=== PATIENT | female | born 1945 | race Caucasian/White ===

== ENCOUNTER 2018-02-10 15:11 | Inpatient (IN) ==
--- NOTE | 2018-02-10 15:29 | Emergency Department Note ---
Disposition Clinical Impression: Acute exacerbation of chronic obstructive airways disease, SOB (shortness of breath), Bronchitis Disposition: Admitted As Inpatient Condition: Fair Referrals: NONE,PCP [Primary Care Provider] - Forms: ED Satisfaction Letter Time of Disposition: 17:10 General Adult HPI - General Chief complaint: ED Shortness of Breath/Dyspnea Stated complaint: "asthma attack" Time Seen by Provider: 02/10/18 15:14 Source: EMS Mode of arrival: EMS Limitations: no limitations Nursing Notes Reviewed: Yes Vital Signs Reviewed: Yes - History of Present Illness HPI Narrative: Ms. Cota is a 72 year old female brought in by EMS. EMS states she was found inside her vehicle on the side of the road with initial O2 saturation of 61. Patient was titrated to 6L (normally on 2-3L), given solumedrol and albuterol en -route, was also given ativan while hypoxic for agitation. ECG enroute showed sinus tachycardia. She arrived alert and oriented on arrival and non-agitated. She reports this shortness of breath started about 2 weeks ago when she was having more difficulty breathing with productive cough. She was first prescribed a z-pack a week ago, then a course of levaquin starting on 02/05. She endorses shortness of breath, weakness, denies chest pain, leg/calf pain. Quit smoking 4 years ago. Pain Scale: 6 - Related Data Home Medications Medication Instructions Recorded Confirmed Albuterol Sulfate [Proair Hfa] 2 puff IH QID 04/15/16 06/20/17 Albuterol Sulfate [VoSpire ER] 8 mg PO BID 04/15/16 06/20/17 Aspirin 325 mg PO DAILY 04/15/16 06/20/17 Ezetimibe [Zetia] 10 mg PO DAILY 04/15/16 06/20/17 Fluticasone/Salmeterol [Advair 1 each IH DAILY 04/15/16 06/20/17 250-50 Diskus] Metoprolol [Lopressor] 25 mg PO BID 04/15/16 06/20/17 Previous Rx's Medication Instructions Recorded Cyanocobalamin (B-12) [Vitamin B12] 1,000 mcg PO DAILY #90 tablet 08/30/16 Allergies Allergy/AdvReac Type Severity Reaction Status Date / Time Iodinated Contrast- Oral and Allergy Unknown Fainting Verified 02/10/18 15:26 IV Dye [Iodinated Contrast Media - IV Dye] Penicillins Allergy Unknown unknown Verified 02/10/18 15:26 Sulfa (Sulfonamide Allergy Unknown Hives Verified 02/10/18 15:26 Antibiotics) codeine Allergy See Verified 02/10/18 15:26 Comments Constitutional: Denies: fever Cardiovascular: Reports: palpitations. Denies: chest pain Respiratory: Reports: dyspnea, wheezes Past Medical History - Past Medical History Medical history: Reports: asthma, COPD, hyperlipidemia, hypertension Psychiatric history: Reports: depression - Social History Smoking Status: Former smoker Smokeless Tobacco Status: No Alcohol use: Reports: none Drug use: Reports: none Physical Exam - General Limitations: no limitations General appearance: alert, in no apparent distress - Head Head exam: atraumatic, normocephalic - Eye Eye exam: Present: EOMI - Chest Chest inspection: Present: normal inspection, symmetric chest wall rise - Respiratory Respiratory exam: Present: other (bilateral diminished breath sounds). Absent: respiratory distress, accessory muscle use - Cardiovascular Cardiovascular exam: Present: regular rate - Abdominal Exam Abdominal exam: Present: soft, Non-Tender. Absent: guarding, rebound - Back Exam Back exam: Present: other (increased kyphosis) - Neurological Exam Neurological exam: Present: alert, oriented X3 - Psychiatric Psychiatric exam: Present: normal affect. Absent: agitated - Skin Skin exam: Present: warm. Absent: cyanosis, diaphoresis Course Course Narrative: 72f bib EMS, on arrival she is on 6L NS alert and oriented, answering questions appropriately, she is saturating in the low to mid 90s. EMS course per HPI. She is non-diaphoretic, no retractions, lung sounds reveal bilateral diminished breath sounds without crackles. She reports no chest pain, she is tachycardic, no tenderness on calf palpation. No abdominal tenderness. We have titrated her to 6L, she has 125mg solumedrol onboard. We are ordering an ECG and troponin in the setting of severe hypoxia at scene (61). Re-eval:Patient continues to saturate well, VSS; will start her on Levoquin monotherapy and continue prn breathing treatments for symptoms. Case was discussed with hospitalist admitter who agrees to admit for evaluation of copd exacerbation. Patient understands plan and agrees. Vital Signs Temperature 98.2 F 02/10/18 15:15 Pulse Rate 111 02/10/18 15:15 Respiratory Rate 24 02/10/18 15:15 Blood Pressure 100/61 02/10/18 15:15 O2 Sat by Pulse Oximetry 91 02/10/18 15:15 Temperature 98.2 F 02/10/18 15:15 Pulse Rate 107 02/10/18 15:27 Respiratory Rate 22 02/10/18 15:27 Blood Pressure 110/72 02/10/18 15:27 O2 Sat by Pulse Oximetry 94 02/10/18 15:27 Oxygen Delivery Oxygen Delivery Nasal Cannula Medical Decision Making - Medical Records Medical records reviewed: Yes I reviewed the patient's medical records. - Lab Data Lab results reviewed: Yes I reviewed the patient's lab results. Result diagrams: 02/10/18 15:42 02/10/18 15:42 Lab Results 02/10/18 02/10/18 Range/Units 15:42 15:42 WBC 4.4 (4.3-11.1) K/mcL RBC 3.55 L (3.82-4.97) M/mcL Hgb 11.6 (11.5-15.4) g/dL Hct 35.1 L (35.3-44.9) % MCV 98.9 (83.0-100.0) fL MCH 32.7 (28.0-33.3) pg MCHC 33.0 (31.6-35.5) g/dL RDW 13.3 (11.5-14.5) % Plt Count 107 L (140-400) K/mcL MPV 10.1 (9.4-12.4) fL Immature Gran % 0.7 (0-4) % Seg Neutrophils % 84.0 % Lymphocytes % 11.7 % Monocytes % 3.4 % Eosinophils % 0.2 % Basophils % 0.0 % Neutrophils # 3.7 (1.6-8.9) K/mcL Lymphocytes # 0.5 L (0.6-4.6) K/mcL Monocytes # 0.2 (0.0-1.3) K/mcL Eosinophils # 0.0 (0.0-0.6) K/mcL Basophils # 0.0 (0.0-0.2) K/mcL Sodium 135 L (136-145) mEq/L Potassium 4.4 (3.5-5.1) mEq/L Chloride 101 (98-107) mEq/L Carbon Dioxide 30 H (23-29) mEq/L BUN 17 (8-23) mg/dL Creatinine 0.97 (0.60-1.20) mg/dL Est GFR ( Amer) > 60 (> 60) Est GFR (Non-Af Amer) 57 L (> 60) BUN/Creatinine Ratio 18 (6-26) Glucose 140 H (70-105) mg/dL Calculated Osmolality 284 (280-300) Calcium 8.6 (8.6-10.3) mg/dL Troponin I < 0.03 (< 0.04) ng/mL - Radiology Data Radiology results reviewed: Yes I reviewed the patient's radiology results. Chest X-Ray 02/10/18 15:27 IMPRESSION: No acute cardiopulmonary disease. D/ / Richie Euceda MD / Richie Euceda MD Interpreting Provider: Richie Euceda MD Attestation Statement - Attestation Attestation: I, Vinod Llamas DO, examined this patient [id number] and my medical decision-making was reviewed with Oscar Mcguire PGY-1 Resident Physician. I agree with the documented findings, disposition and treatment plan as described except to the extent set forth below. Please see my progress notes for details.
[2018-02-10 15:56] LABS: Eosinophils % 0.2 %; Hematocrit 35.1 % (35.3-44.9); Hemoglobin 11.6 g/dL (11.5-15.4); Immature Granulocytes % 0.7 % (0-4); Lymphocytes # 0.5 K/mcL (0.6-4.6); Lymphocytes % 11.7 %; Mean Corpuscular Hemoglobin 32.7 pg (28.0-33.3); Mean Corpuscular Volume 98.9 fL (83.0-100.0); Mean Platelet Volume 10.1 fL (9.4-12.4); Monocytes # 0.2 K/mcL (0.0-1.3); Monocytes % 3.4 %; Neutrophils # 3.7 K/mcL (1.6-8.9); Platelet Count 107 K/mcL (140-400); Red Blood Count 3.55 M/mcL (3.82-4.97); Red Cell Distribution Width 13.3 % (11.5-14.5)
[2018-02-10 16:22] LABS: BUN/Creatinine Ratio 18 (6-26); Blood Urea Nitrogen 17 mg/dL (8-23); Calcium 8.6 mg/dL (8.6-10.3); Carbon Dioxide 30 mEq/L (23-29); Chloride 101 mEq/L (98-107); Glucose 140 mg/dL (70-105); Osmolality,Calculated 284 (280-300); Potassium 4.4 mEq/L (3.5-5.1); Sodium 135 mEq/L (136-145); Troponin I < 0.03 ng/mL (< 0.04); eGFR For African Americans > 60 (> 60); eGFR For Non-African Americans 57 (> 60)
[2018-02-10] MEDS ORDERED: levoFLOXacin 500 MG TABLET PO ONE (16:39)
--- NOTE | 2018-02-10 16:41 | Emergency Department Note ---
Disposition Clinical Impression: Acute exacerbation of chronic obstructive airways disease, SOB (shortness of breath), Bronchitis Disposition: Admitted As Inpatient Condition: Fair Referrals: NONE,PCP [Primary Care Provider] - Forms: ED Satisfaction Letter Time of Disposition: 16:54 General Adult HPI - General Chief complaint: ED Shortness of Breath/Dyspnea Stated complaint: "asthma attack" Time Seen by Provider: 02/10/18 15:14 Source: EMS Mode of arrival: EMS Limitations: no limitations - History of Present Illness Pain Scale: 6 - Related Data Home Medications Medication Instructions Recorded Confirmed Albuterol Sulfate [Proair Hfa] 2 puff IH QID 04/15/16 06/20/17 Albuterol Sulfate [VoSpire ER] 8 mg PO BID 04/15/16 06/20/17 Aspirin 325 mg PO DAILY 04/15/16 06/20/17 Ezetimibe [Zetia] 10 mg PO DAILY 04/15/16 06/20/17 Fluticasone/Salmeterol [Advair 1 each IH DAILY 04/15/16 06/20/17 250-50 Diskus] Metoprolol [Lopressor] 25 mg PO BID 04/15/16 06/20/17 Previous Rx's Medication Instructions Recorded Cyanocobalamin (B-12) [Vitamin B12] 1,000 mcg PO DAILY #90 tablet 08/30/16 Allergies Allergy/AdvReac Type Severity Reaction Status Date / Time Iodinated Contrast- Oral and Allergy Unknown Fainting Verified 02/10/18 15:26 IV Dye [Iodinated Contrast Media - IV Dye] Penicillins Allergy Unknown unknown Verified 02/10/18 15:26 Sulfa (Sulfonamide Allergy Unknown Hives Verified 02/10/18 15:26 Antibiotics) codeine Allergy See Verified 02/10/18 15:26 Comments Constitutional: Denies: fever Cardiovascular: Reports: palpitations. Denies: chest pain Respiratory: Reports: dyspnea, wheezes Past Medical History - Past Medical History Medical history: Reports: asthma, COPD, hyperlipidemia, hypertension Psychiatric history: Reports: depression - Social History Smoking Status: Former smoker Smokeless Tobacco Status: No Alcohol use: Reports: none Drug use: Reports: none Physical Exam - General Limitations: no limitations General appearance: alert, in no apparent distress Course Vital Signs Temperature 98.2 F 02/10/18 15:15 Pulse Rate 111 04/03/18 15:15 Respiratory Rate 24 02/10/18 15:15 Blood Pressure 100/61 02/10/18 15:15 O2 Sat by Pulse Oximetry 91 02/10/18 15:15 Temperature 98.2 F 02/10/18 15:15 Pulse Rate 107 02/10/18 15:27 Respiratory Rate 22 02/10/18 15:27 Blood Pressure 110/72 02/10/18 15:27 O2 Sat by Pulse Oximetry 94 02/10/18 15:27 Oxygen Delivery Oxygen Delivery Nasal Cannula Medical Decision Making - Lab Data Result diagrams: 02/10/18 15:42 02/10/18 15:42 Lab Results 02/10/18 02/10/18 Range/Units 15:42 15:42 WBC 4.4 (4.3-11.1) K/mcL RBC 3.55 L (3.82-4.97) M/mcL Hgb 11.6 (11.5-15.4) g/dL Hct 35.1 L (35.3-44.9) % MCV 98.9 (83.0-100.0) fL MCH 32.7 (28.0-33.3) pg MCHC 33.0 (31.6-35.5) g/dL RDW 13.3 (11.5-14.5) % Plt Count 107 L (140-400) K/mcL MPV 10.1 (9.4-12.4) fL Immature Gran % 0.7 (0-4) % Seg Neutrophils % 84.0 % Lymphocytes % 11.7 % Monocytes % 3.4 % Eosinophils % 0.2 % Basophils % 0.0 % Neutrophils # 3.7 (1.6-8.9) K/mcL Lymphocytes # 0.5 L (0.6-4.6) K/mcL Monocytes # 0.2 (0.0-1.3) K/mcL Eosinophils # 0.0 (0.0-0.6) K/mcL Basophils # 0.0 (0.0-0.2) K/mcL Sodium 135 L (136-145) mEq/L Potassium 4.4 (3.5-5.1) mEq/L Chloride 101 (98-107) mEq/L Carbon Dioxide 30 H (23-29) mEq/L BUN 17 (8-23) mg/dL Creatinine 0.97 (0.60-1.20) mg/dL Est GFR ( Amer) > 60 (> 60) Est GFR (Non-Af Amer) 57 L (> 60) BUN/Creatinine Ratio 18 (6-26) Glucose 140 H (70-105) mg/dL Calculated Osmolality 284 (280-300) Calcium 8.6 (8.6-10.3) mg/dL Troponin I < 0.03 (< 0.04) ng/mL Attestation Statement - Attestation Attestation: I, Vinod Llamas DO, examined this patient [id number] and my medical decision-making was reviewed with Oscar Mcguire PGY-1), Resident Physician. I agree with the documented findings, disposition and treatment plan as described except to the extent set forth below. Please see my progress notes for details. 72-year-old female presents to the emergency room for evaluation of an asthma time. Patient has long-standing asthma COPD secondary to a previous smoking history. She denies any chest pain fevers chills nausea vomiting or diarrhea. Denies any headache or vision change. Patient has had productive cough and sputum home with last several weeks. Patient denies any recent changes in her medication. She has been on several antibiotic saline relief. She does use 2 L of oxygen typically homicidal required 4 L 24 hours a day over the last several days to weeks. Patient has been using her nebulizer. Patient is otherwise comfortable with this point. Disposition pending the full workup. Patient lungs are diminished bilaterally increased work of breathing and wheezing. Heart is regular but slightly tachycardic. Abdomen is soft. Patient has no signs of pitting edema or swelling. Disposition will most available admission the hospital. Patient was given steroids and transported by EMS. Breathing treatments were also given. Patient is otherwise clinically stable. See detailed documentation of the physical exam, medical intervention, medical decision-making and disposition in the resident physician's note. No critical care provider this patient's treatment course at this time. 1650 Patient is feeling better at this point. Patient has what appears to be asymptomatic COPD exacerbation with no acute signs of infectious etiology. She will be prophylactically started on Levaquin covering for bronchitis. Antibiotics steroids and breathing treatments have article given. Patient will be admitted for further workup and management and disposition.
[2018-02-10] MEDS ORDERED: Acetaminophen 325 MG TABLET PO PRN (20:51)
[2018-02-10] MEDS ORDERED: Naloxone 0.4 MG/ML INJ IVP PRN (20:51)
--- NOTE | 2018-02-10 21:09 | Internal Med History&Physical ---
Date of Encounter: 02/10/18 Time of Encounter: 20:30 Internal Medicine - H&P: HPI Chief complaint: Shortness of breath Admitted From: Emergency Dept Plans for Post Hospital Care: Transfer Inp Rehab Fac History of present illness: Ms. Cota is a 72 year old female with h/o- COPD, presents woth c/o- shortness of breath. Patient is upset about her ongoing issues with dyspnea and is unable to provide a focused history, although she is oriented. SHe reports having had dyspnea, worse with minimal exertion, going on, progressively worse, for at least 2 weeks. She was prescribed Z-tanya by her PCP prior to this, which she has not used as she got better. She started using Z-tanya for the last few days, with no improvement. She has associated chest congestion and tightness, and she feels like "she is going to ". She has subjective fevers and chills, dry cough, intermittent chest pain associated with coughing. SHe has never followed with Pulmonology. Past Med Surg Social Fam HX - Past Medical History Medical history: asthma, COPD, hyperlipidemia, hypertension, renal disease Psychiatric history: depression - Past Surgical History Surgical History: appendectomy, cholecystectomy - Social History Smoking Status: Former smoker Smokeless Tobacco Status: No Alcohol use: none Drug use: none Occupational status: retired Current living situation: Home, With Family Activity Level: Independent ambulation Recent Out of Country Travel Within the Last 8 Weeks: No Exposure or Possible Exposure to Illness During Travel: No - Family History Mother Grandmother Hx Family Cancer: Yes (leukemia) Father Hx Family Cardiac Disorders: Yes (CAD) Hx Family Endocrine Disorder: Yes (DM) Internal Medicine - H&P: Meds Albuterol Sulfate [Proair Hfa] 2 puff IH QID 04/15/16 [History] Albuterol Sulfate [VoSpire ER] 8 mg PO BID 04/15/16 [History] Aspirin 325 mg PO DAILY 04/15/16 [History] Ezetimibe [Zetia] 10 mg PO DAILY 04/15/16 [History] Fluticasone/Salmeterol [Advair 250-50 Diskus] 1 each IH DAILY 04/15/16 [History] Metoprolol [Lopressor] 25 mg PO BID 04/15/16 [History] Cyanocobalamin (B-12) [Vitamin B12] 1,000 mcg PO DAILY #90 tablet 08/30/16 [Rx] 3 Allergy/AdvReac Type Severity Reaction Status Date / Time Iodinated Contrast- Oral and Allergy Unknown Fainting Verified 02/10/18 15:26 IV Dye [Iodinated Contrast Media - IV Dye] Penicillins Allergy Unknown unknown Verified 02/10/18 15:26 Sulfa (Sulfonamide Allergy Unknown Hives Verified 02/10/18 15:26 Antibiotics) codeine Allergy See Verified 02/10/18 15:26 Comments All Systems PM: A 10-system review of systems was performed and is negative for pertinent findings except as documented above in the HPI. - Constitutional Constitutional: no chills, no fever(s), no night sweats - EENT Eyes: no change in vision, no discharge, no pain, no photophobia Ears: no ear discharge, no ear pain, no tinnitus Nose, mouth and throat: no dysphagia, no nasal discharge, no neck pain, no sore throat - Cardiovascular Cardiovascular ROS IM: chest pain, dyspnea, dyspnea on exertion - Respiratory Respiratory: cough, dyspnea, chest congestion, pain with cough - Gastrointestinal Gastrointestinal: constipation, no abdominal pain, no diarrhea, no hematemesis, no hematochezia, no melena, no nausea, no vomiting - Genitourinary Genitourinary: no change in urinary stream, no dysuria, no flank pain, no hematuria - Musculoskeletal Musculoskeletal ROS IM: no numbness, no tingling - Integumentary Integumentary IM: no rash, no unusual bruising - Neurological Neurological ROS: no confusion, no convulsions, no focal weakness, no numbness, no tingling, no tremor(s) - Hematologic/Lymphatic Hematologic/Lymphatic: no easy bruising - Constitutional Vitals: Temp Pulse Resp BP Pulse Ox 98.3 F 115 19 121/57 93 02/10/18 18:52 02/10/18 18:52 02/10/18 18:52 02/10/18 18:52 02/10/18 19:01 General appearance: Present: mild distress, A&O X 3, answers questions appropriately - Respiratory Respiratory exam: Present: decreased breath sounds (B/L decreased air entry), CTAB. Absent: accessory muscle use, rales, rhonchi, wheezes - Cardiovascular Cardiovascular exam: Present: RRR, +S1, +S2, tachycardia. Absent: diastolic murmur, gallop, rubs, systolic murmur - GI/Abdominal GI/Abdominal exam: Present: normal bowel sounds, soft, no peritoneal signs. Absent: distended, tenderness - Extremities Exam Extremities exam: Present: warm, radial pulses palpable and symmetrical. Absent : calf tenderness, cyanotic, pedal edema - Neurological Exam Neurological exam: Present: CN II-XII intact, oriented X3, no focal deficits. Absent: pronater drift, facial droop, speech deficit - Skin Skin exam: Present: dry, intact Internal Med - H&P Results - Labs CBC & Chem 7: 02/10/18 15:42 02/10/18 15:42 - Assessment and plan (1) Acute exacerbation of chronic obstructive airways disease Current Visit: Yes Status: Acute Assessment and plan: continue empiric IV Doxycycline, duonebs (Xopenex due to tachycardia), mucolytics, IV steroids, supplemental O2; patient may need LABA/ICS prior to discharge. will consult Pulmonology; Code status d/w patient- wishes to be DNR-CCA/DNI; (2) Acute and chronic respiratory failure Current Visit: Yes Status: Acute Assessment and plan: likely due to COPD; chest XRay reviewed independently- no e/o- infiltrates or effusions; hyperexpanded lung victor c/w COPD; EKG shows sinus tachycardia; continue IV steroids, empiric IV antibiotics and supplemental O2 and breathing treatments; consult Pulmonology; requiring 6L/min via NC, wean down FiO2 as tolerated. Telemetry monitoring and serial Troponins; No risk factors for PE; tachycardia and hypoxia likely due to nebs and COPD; listed allergy to iodine dye, patient claims this is not true; from what I understand, she can get MRI dye but is allergic to iodinated contrast. Qualifiers: Respiratory failure complication: hypoxia Qualified Code(s): J96.21 - Acute and chronic respiratory failure with hypoxia (3) Essential hypertension Current Visit: Yes Status: Chronic Assessment and plan: BP well-controlled; continue Metoprolol. (4) Hyperlipidemia Current Visit: Yes Status: Chronic Qualifiers: Hyperlipidemia type: unspecified Qualified Code(s): E78.5 - Hyperlipidemia , unspecified (5) Depression Current Visit: Yes Status: Chronic Qualifiers: Depression Type: unspecified Qualified Code(s): F32.9 - Major depressive disorder, single episode, unspecified (6) CKD (chronic kidney disease), stage III Current Visit: Yes Status: Chronic Assessment and plan: serum creatinine stable; avoid new nephrotoxic agents; - Time Spent With Patient Total time spent is greater than 50% in coordination of care (as documented) at patient's floor/unit and/or counseling patient:
[2018-02-10] MEDS: Ipratropium Neb 0.5 MG NEBULIZER IH SCH (21:51)
[2018-02-10] MEDS: Levalbuterol Neb 1.25 MG/3 ML IH SCH (21:51)
[2018-02-10] MEDS: Acetylcysteine 10% 2 ML INHSOL IH SCH (21:52)
[2018-02-11] MEDS: *HR* Heparin 5,000 UNIT/ML VIAL SQ SCH ×3 (00:02→16:31)
[2018-02-11] MEDS: MethylPREDNISolone 40 MG/ML VIAL IVP SCH ×3 (00:02→16:31)
[2018-02-11] MEDS: Ipratropium Neb 0.5 MG NEBULIZER IH SCH ×4 (03:26→22:10)
[2018-02-11] MEDS: Levalbuterol Neb 1.25 MG/3 ML IH SCH ×4 (03:26→22:10)
[2018-02-11] MEDS: Acetylcysteine 10% 2 ML INHSOL IH SCH ×2 (03:28→10:08)
[2018-02-11 04:34] LABS: Hematocrit 36.9 % (35.3-44.9); Immature Granulocytes % 0.6 % (0-4); Lymphocytes # 0.5 K/mcL (0.6-4.6); Lymphocytes % 9.8 %; Mean Corpuscular HGB Conc 32.5 g/dL (31.6-35.5); Mean Corpuscular Hemoglobin 32.3 pg (28.0-33.3); Mean Corpuscular Volume 99.2 fL (83.0-100.0); Mean Platelet Volume 10.3 fL (9.4-12.4); Monocytes # 0.1 K/mcL (0.0-1.3); Monocytes % 2.1 %; Neutrophils # 4.7 K/mcL (1.6-8.9); Platelet Count 115 K/mcL (140-400); Red Blood Count 3.72 M/mcL (3.82-4.97); Red Cell Distribution Width 13.3 % (11.5-14.5); Segmented Neutrophils % 87.5 %
[2018-02-11 04:57] LABS: BUN/Creatinine Ratio 21 (6-26); Blood Urea Nitrogen 18 mg/dL (8-23); Calcium 9.2 mg/dL (8.6-10.3); Carbon Dioxide 31 mEq/L (23-29); Chloride 104 mEq/L (98-107); Glucose 140 mg/dL (70-105); Magnesium 2.3 mg/dL (1.6-2.6); Osmolality,Calculated 292 (280-300); Potassium 4.3 mEq/L (3.5-5.1); Sodium 139 mEq/L (136-145); eGFR For African Americans > 60 (> 60); eGFR For Non-African Americans > 60 (> 60)
[2018-02-11] MEDS ORDERED: Doxycycline 100 MG in 0.9 % Sodium Chloride Mini Bag 100 ML IVPB SCH (06:00)
[2018-02-11] MEDS ORDERED: (Ezetimibe [Zetia] 10 MG) PO SCH (09:00)
[2018-02-11] MEDS ORDERED: Budesonide/Formoterol 160/4.5 MDI IH SCH (09:00)
[2018-02-11] MEDS: Aspirin 325 MG TABLET PO SCH (09:01)
[2018-02-11] MEDS ORDERED: *HR* LORazepam 2 MG/ML VIAL IVP ONE (09:55)
[2018-02-11] MEDS: Budesonide/Formoterol 160/4.5 MDI IH SCH ×2 (10:22→22:10)
[2018-02-11 10:25] LABS: ABG Base Excess 4 mEq/L (-2 to 3); ABG HCO3 32 mEq/L (21-27); ABG Oxygen Saturation 96 % (95-98); ABG PCO2 61 mmHg (35-45); ABG PH 7.33 pH Units (7.32-7.45); ABG PO2 89 mmHg (85-104); ABG TCO2 34 mEq/L (20-26)
--- NOTE | 2018-02-11 10:44 | Internal Med Progress Note ---
Date of Encounter: 02/11/18 Time of Encounter: 09:50 - Assessment and plan (1) Acute exacerbation of chronic obstructive airways disease Current Visit: Yes Status: Acute Assessment and plan: Continue systemic steroids Methylprednisolone 40mg IV q8h), bronchodilator support O2 supplementation bipap support Pt will benefit from LABA/ICS upon discharge awaiting respiratory infection panel pulmonary evaluation requested continue IV doxycycline will closely monitor respiratory status code status: DNR/DNI (2) Acute and chronic respiratory failure Current Visit: Yes Status: Acute Assessment and plan: Secondary to COPD exacerbation plan as listed above Qualifiers: Respiratory failure complication: hypoxia Qualified Code(s): J96.21 - Acute and chronic respiratory failure with hypoxia (3) Essential hypertension Current Visit: Yes Status: Chronic Assessment and plan: BP within acceptable range continue home medications (4) CKD (chronic kidney disease), stage III Current Visit: Yes Status: Chronic Assessment and plan: Renal function at baseline continue to avoid nephrotoxic agents monitor renal function (5) DVT prophylaxis Current Visit: Yes Status: Acute Assessment and plan: Heparin SQ - Time Spent With Patient Total time spent is greater than 50% in coordination of care (as documented) at patient's floor/unit and/or counseling patient: - Subjective Interval history: Patient seen and examined with RN present at bedside. Pt currently saturating well on 6L NC however noted to be extremely anxious reporting of having difficulty breathing. Noted to have decreased breath sounds with equal air entry bilaterally with minimal expiratory wheezing bilaterally. ABG noted, pt to be placed on bipap support and a low dose Ativan 0.5mg IV given for anxiety. PUlmonary evaluation requested. - Constitutional Vitals: Temp Pulse Resp BP Pulse Ox 98.1 F 109 18 135/72 94 02/11/18 06:58 02/11/18 06:58 02/11/18 06:58 02/11/18 06:58 02/11/18 06:58 General appearance: Present: A&O X 3 (anxious ), answers questions appropriately - Head Head exam: Present: atraumatic, normocephalic - Eye Eye exam: Present: conjuntiva pink, sclera anicteric - Respiratory Respiratory exam: Present: decreased breath sounds (equal air entry bilaterally ), wheezes (b/l expiratory wheezing ). Absent: respiratory distress - Cardiovascular Cardiovascular exam: Present: +S1, +S2, tachycardia. Absent: diastolic murmur, gallop, rubs, systolic murmur - GI/Abdominal GI/Abdominal exam: Present: normal bowel sounds, soft, no peritoneal signs. Absent: distended, tenderness - Extremities Exam Extremities exam: Present: warm, radial pulses palpable and symmetrical. Absent : calf tenderness, tenderness - Neurological Exam Neurological exam: Present: oriented X3 - Psychiatric Psychiatric exam: Present: anxious Internal Medicine: Result - Labs CBC & Chem 7: 02/11/18 03:37 02/11/18 03:37 Labs: Short CBC 02/11/18 Range/Units 03:37 WBC 5.3 (4.3-11.1) K/mcL Hgb 12.0 (11.5-15.4) g/dL Hct 36.9 (35.3-44.9) % Plt Count 115 L (140-400) K/mcL Neutrophils # 4.7 (1.6-8.9) K/mcL BMP 02/11/18 03:37 Sodium 139 Potassium 4.3 Chloride 104 Carbon Dioxide 31 H BUN 18 Creatinine 0.85 Glucose 140 H Calcium 9.2 Cardiac Enzymes 02/10/18 02/11/18 Range/Units 21:57 03:37 Troponin I < 0.03 < 0.03 (< 0.04) ng/mL - ABG Interpretation ABG results: ABG ABG pH 7.33 pH Units (7.32-7.45) 02/11/18 10:15 ABG pCO2 61 mmHg (35-45) H 02/11/18 10:15 ABG pO2 89 mmHg (85-104) 02/11/18 10:15 ABG O2 Saturation 96 % (95-98) 02/11/18 10:15 Consult Discharge Plan - Plan Referrals: Oli Mcfarlane MD [Non-Partnered Physician] -
[2018-02-11] MEDS ORDERED: Nitroglycerin 0.4 MG TAB.SUBL SL PRN (10:48)
--- NOTE | 2018-02-11 10:56 | Pulmonology Consult Note ---
Date of Encounter: 02/11/18 Time of Encounter: 10:56 Assessment and Plan (1) Acute and chronic respiratory failure Current Visit: Yes Status: Acute Currently she is requiring 6 L nasal cannula to keep saturation the low 90s which is appropriate for her. I suspect the etiology is COPD with acute exacerbation cannot exclude possibility of viral infection or possible but less likely bacterial coinfection I reviewed her arterial blood gas which is notable for a mild respiratory acidosis this and of itself was not particular concerning to me but given her work of breathing and think she would benefit from BiPAP again this is more for decreased work of breathing than rescue therapy for severe COPD exacerbation. CT of the thorax would help further clarify there is underlying pneumonia Qualifiers: Respiratory failure complication: hypoxia Qualified Code(s): J96.21 - Acute and chronic respiratory failure with hypoxia (2) Acute exacerbation of chronic obstructive airways disease Current Visit: Yes Status: Acute Please send respiratory viral panel and send sputum culture if not already obtained I agree with antimicrobials empirically she is currently on doxycycline which is not unreasonable for COPD exacerbation pending further infectious workup Agree with IV steroids Continue schedule bronchodilators Agree with starting ICS/LABA Stop acetylcysteine She will need outpatient pulmonary follow-up at the time of discharge Tobacco abuse is in remission (3) Elevated brain natriuretic peptide (BNP) level Current Visit: Yes Status: Acute I suspect this is related to underlying diastolic dysfunction And I also suspect this is complicating her level of dyspnea given degree of tachycardia and hypoxemia that is contributing to decreased filling times and increased filling pressures Would try to titrate her beta gene as possible to slow heart rate She would likely benefit from gentle diuretic over the next 24-48 hours such as 20 IV Lasix with monitoring of electrolytes and renal function No evidence of right ventricular dysfunction or pulmonary hypertension on last echocardiogram History of Present Illness Consult date: 02/11/18 Requesting physician: Sugar Bolaños Reason for consult: COPD Chief complaint: Difficulty in Breathing History of present illness: This is a pleasant 72-year-old woman with a past medical history of asthma 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 She developed URI-like symptoms over the weekend which progressed to severe dyspnea cough fevers and chills. On arrival to the emergency department was noted to be tachycardic with increased work of breathing oxygen requirement was up from baseline. WC count was normal troponin negative BNP slightly elevated. Since she has been the hospital she has been treated with doxycycline IV steroids and bronchodilators however symptoms have not improved significantly. Chest x-ray was notable for long-standing obstructive lung disease changes but no evidence of pneumonia. When I examined her bedside today she told me that she was still having significant dyspnea without any significant improvement over the last 24 hours. Gen. long-standing smoking history but quit about 5 years ago. She was formerly seen by [facility] but has not been seen in many years her current medication regimen includes an inhaled corticosteroid/long-acting beta agonist combination metered dose inhaler along with a long acting muscarinic antagonist daily she also has nebulizer treatments that she uses and she says in general do not seem to help very much Past Med Surg Social Fam HX - Past Medical History Medical history: asthma, COPD, hyperlipidemia, hypertension, renal disease Psychiatric history: depression - Past Surgical History Surgical History: appendectomy, cholecystectomy - Social History Smoking Status: Former smoker Smokeless Tobacco Status: No Alcohol use: none Drug use: none - Family History Mother Grandmother Hx Family Cancer: Yes (leukemia) Father Hx Family Cardiac Disorders: Yes (CAD) Hx Family Endocrine Disorder: Yes (DM) Medications and Allergies Albuterol Sulfate [Proair Hfa] 2 puff IH QID 04/15/16 [History] Albuterol Sulfate [VoSpire ER] 8 mg PO BID 04/15/16 [History] Aspirin 325 mg PO DAILY 04/15/16 [History] Ezetimibe [Zetia] 10 mg PO DAILY 04/15/16 [History] Fluticasone/Salmeterol [Advair 250-50 Diskus] 1 each IH DAILY 04/15/16 [History] Metoprolol [Lopressor] 25 mg PO BID 04/15/16 [History] Cyanocobalamin (B-12) [Vitamin B12] 1,000 mcg PO DAILY #90 tablet 08/30/16 [Rx] Cyclosporine [Restasis] 1 drop BOTH EYES BID 02/11/18 [History] Esomeprazole Magnesium [Nexium] 40 mg PO DAILY 02/11/18 [History] Fluticasone Propionate Nasal [Flonase] 2 spr NS DAILY 02/11/18 [History] Nitroglycerin [Nitrostat] 0.4 mg SL Q5M PRN 02/11/18 [History] Ondansetron [Zofran] 8 mg PO Q8HR PRN 02/11/18 [History] Tiotropium [Spiriva] 1 puff IH DAILY 02/11/18 [History] levoFLOXacin [Levaquin] 500 mg PO DAILY 02/11/18 [History] 3 Allergy/AdvReac Type Severity Reaction Status Date / Time Iodinated Contrast- Oral and Allergy Unknown Fainting Verified 02/10/18 15:26 IV Dye [Iodinated Contrast Media - IV Dye] Penicillins Allergy Unknown unknown Verified 02/10/18 15:26 Sulfa (Sulfonamide Allergy Unknown Hives Verified 02/10/18 15:26 Antibiotics) codeine Allergy See Verified 02/10/18 15:26 Comments All Systems: The remainder of the systems were reviewed and are negative Physical Examination Vital Signs: Vital Signs, Last 4 Hours Temp Pulse Resp BP Pulse Ox 02/11/18 06:58 98.1 F 109 18 135/72 94 General appearance: appears uncomfortable Eyes: nonicteric ENT: oropharynx moist Neck: supple Effort: very labored Auscultation: bilateral: diminished breath sounds, wheezes (Faint expiratory wheeze ) Cardiovascular: regular rate and rhythm Gastrointestinal: normoactive bowel sounds Integumentary: normal Extremities: no cyanosis, no edema Musculoskeletal: no deformities normal mental status, non-focal exam mood appropriate Results - Laboratory Findings CBC and BMP: 02/11/18 03:37 02/11/18 03:37 ABG ABG pH 7.33 pH Units (7.32-7.45) 02/11/18 10:15 ABG pCO2 61 mmHg (35-45) H 02/11/18 10:15 ABG pO2 89 mmHg (85-104) 02/11/18 10:15 ABG O2 Saturation 96 % (95-98) 02/11/18 10:15 Abnormal lab findings: Abnormal lab results RBC 3.72 M/mcL (3.82-4.97) L 02/11/18 03:37 Plt Count 115 K/mcL (140-400) L 02/11/18 03:37 Lymphocytes # 0.5 K/mcL (0.6-4.6) L 02/11/18 03:37 ABG pCO2 61 mmHg (35-45) H 02/11/18 10:15 ABG HCO3 32 mEq/L (21-27) H 02/11/18 10:15 ABG Total CO2 34 mEq/L (20-26) H 02/11/18 10:15 ABG Base Excess 4 mEq/L (-2 to 3) H 02/11/18 10:15 Carbon Dioxide 31 mEq/L (23-29) H 02/11/18 03:37 Glucose 140 mg/dL (70-105) H 02/11/18 03:37 - Diagnostic Findings Chest x-ray: report reviewed, image reviewed - Clinical Findings Intake & Output: Intake & Output 02/10/18 02/11/18 02/11/18 23:59 07:59 15:59 Intake Total 240 / 240 Output Total 250 / 250 Balance -250 / -250 240 / 240 Consult Discharge Plan - Plan Referrals: Oli Mcfarlane MD [Non-Partnered Physician] -
[2018-02-11 12:35] LABS: Adenovirus Not Detected (Not Detect); Bordetella Pertussis Not Detected (Not Detect); Chlamydophila pneumoniae Not Detected (Not Detect); Coronavirus 229E Not Detected (Not Detect); Coronavirus HKU1 Not Detected (Not Detect); Coronavirus NL63 Not Detected (Not Detect); Coronavirus OC43 Not Detected (Not Detect); Human Metapneumovirus Not Detected (Not Detect); Human Rhinovirus/Enterovirus Not Detected (Not Detect); Influenza A Subtype 2009 H1 Not Detected (Not Detect); Influenza A Untypeable Not Detected (Not Detect); Influenza B Not Detected (Not Detect); Mycoplasma pneumoniae Not Detected (Not Detect); Parainfluenza Virus 1 Not Detected (Not Detect); Parainfluenza Virus 2 Not Detected (Not Detect); Parainfluenza Virus 3 Not Detected (Not Detect); Parainfluenza Virus 4 Not Detected (Not Detect); Respiratory Syncytial Virus Not Detected (Not Detect)
[2018-02-11] MEDS ORDERED: Artificial Tears SOLN 15 ML BOTTLE BOTH EYES PRN (12:38)
--- NOTE | 2018-02-11 19:56 | Electrocardiograph Report ---
[place] [id number] Test Date: 2018-02-10 Pat Name: Katherine Cota Department: 102 Room: 2A14 Gender: F Rat Poisoner: : 1945 Requested By: Gilson Mcguire Order Number: [id number] Reading MD: Alexandr Reyes Measurements Intervals [place] Rate: 107 P: 73 FL: 171 QRS: 55 QRSD: 67 T: 29 QT: 319 QTc: 382 Interpretive Statements SINUS TACHYCARDIA Electronically Signed On 02-11-2018 19:54:33 EDT by Alexandr Reyes
[2018-02-11] MEDS ORDERED: (Cyclosporine [Restasis] 1 DROP) OP SCH (21:00)
[2018-02-11] MEDS: Doxycycline 100 MG CAPSULE PO SCH (21:32)
[2018-02-12] MEDS: *HR* Heparin 5,000 UNIT/ML VIAL SQ SCH ×3 (00:24→18:05)
[2018-02-12] MEDS: Ipratropium Neb 0.5 MG NEBULIZER IH SCH ×4 (03:32→22:41)
[2018-02-12] MEDS: Levalbuterol Neb 1.25 MG/3 ML IH SCH ×4 (03:33→22:41)
[2018-02-12 07:44] LABS: Basophils % 0.1 %; Hematocrit 38.1 % (35.3-44.9); Hemoglobin 11.9 g/dL (11.5-15.4); Immature Granulocytes % 0.5 % (0-4); Lymphocytes # 0.8 K/mcL (0.6-4.6); Lymphocytes % 4.9 %; Mean Corpuscular HGB Conc 31.2 g/dL (31.6-35.5); Mean Corpuscular Hemoglobin 31.5 pg (28.0-33.3); Mean Corpuscular Volume 100.8 fL (83.0-100.0); Mean Platelet Volume 10.4 fL (9.4-12.4); Monocytes # 0.6 K/mcL (0.0-1.3); Monocytes % 3.7 %; Neutrophils # 13.9 K/mcL (1.6-8.9); Platelet Count 169 K/mcL (140-400); Red Blood Count 3.78 M/mcL (3.82-4.97); Red Cell Distribution Width 13.5 % (11.5-14.5); Segmented Neutrophils % 90.8 %
[2018-02-12 07:58] LABS: BUN/Creatinine Ratio 25 (6-26); Blood Urea Nitrogen 19 mg/dL (8-23); Calcium 9.3 mg/dL (8.6-10.3); Carbon Dioxide 30 mEq/L (23-29); Chloride 107 mEq/L (98-107); Glucose 112 mg/dL (70-105); Magnesium 2.3 mg/dL (1.6-2.6); Osmolality,Calculated 293 (280-300); Phosphorous 3.7 mg/dL (2.7-4.5); Potassium 4.9 mEq/L (3.5-5.1); Sodium 140 mEq/L (136-145); eGFR For African Americans > 60 (> 60); eGFR For Non-African Americans > 60 (> 60)
--- NOTE | 2018-02-12 08:57 | Pulmonology Progress Note ---
Date of Encounter: 02/12/18 Time of Encounter: 08:55 Assessment and Plan (1) Acute and chronic respiratory failure Current Visit: Yes Status: Acute This is secondary to COPD exacerbation with pneumonia Is benefiting from BiPAP to decrease work of breathing Continue several oxygen to keep saturation greater than 80% to around 92% Getting her out of the bed and into the chair incentive spirometry and early ambulation is also important in general terms to decrease VQ mismatching Qualifiers: Respiratory failure complication: hypoxia Qualified Code(s): J96.21 - Acute and chronic respiratory failure with hypoxia (2) Acute exacerbation of chronic obstructive airways disease Current Visit: Yes Status: Acute COPD exacerbation secondary to pneumonia Continue IV steroids today Cont bronchodilators as scheduled Continued metered-dose inhaler (3) Elevated brain natriuretic peptide (BNP) level Current Visit: Yes Status: Acute Diastolic dysfunction may be contributing to shortness of breath but I think this is a more minor player compared to airways disease with exacerbation and pneumonia (4) Pneumonia Current Visit: Yes Status: Acute CT scan suggest pneumonia white blood cell count is elevated today this may be a steroid effect but given radiographic findings I recommend initiating antimicrobial therapy for Community associated pathogens. I suspect respiratory fluoroquinolone (such as levaquin) is sufficient please send urine strep and Legionella not already done. Course to be determined by clinical response but generally speaking 7 days is sufficient treatment Qualifiers: Laterality: bilateral Lung location: upper lobe of lung Qualified Code(s) : J18.1 - Lobar pneumonia, unspecified organism Subjective Principal diagnosis: AECOPD Interval history: Teresa Cota states that she is having "a rough day today" and feels worse than she did yesterday she denies fevers or chills but just feels like she "cannot get any air in" she has been using BiPAP and that seems to help with her work of breathing she has been off it now for a little while and she will like to return to using it. Oxygen saturation either on BiPAP her off has been about the same Objective PUL Vital signs: Last Vital Signs Temp 97.8 F 02/12/18 06:48 Pulse 85 02/12/18 06:48 Resp 18 02/12/18 06:48 BP 135/56 02/12/18 06:48 Pulse Ox 97 02/12/18 06:48 General appearance: appears uncomfortable Auscultation: bilateral: diminished breath sounds, wheezes Cardiovascular: regular rate and rhythm Gastrointestinal: normoactive bowel sounds, absent bowel sounds normal mental status, non-focal exam anxious Results - Laboratory Findings CBC and BMP: 02/12/18 07:16 02/12/18 07:16 ABG ABG pH 7.33 pH Units (7.32-7.45) 02/11/18 10:15 ABG pCO2 61 mmHg (35-45) H 02/11/18 10:15 ABG pO2 89 mmHg (85-104) 02/11/18 10:15 ABG O2 Saturation 96 % (95-98) 02/11/18 10:15 Abnormal lab findings: Abnormal lab results WBC 15.3 K/mcL (4.3-11.1) H D 02/12/18 07:16 RBC 3.78 M/mcL (3.82-4.97) L 02/12/18 07:16 MCV 100.8 fL (83.0-100.0) H 02/12/18 07:16 MCHC 31.2 g/dL (31.6-35.5) L 02/12/18 07:16 Neutrophils # 13.9 K/mcL (1.6-8.9) H 02/12/18 07:16 ABG pCO2 61 mmHg (35-45) H 02/11/18 10:15 ABG HCO3 32 mEq/L (21-27) H 02/11/18 10:15 ABG Total CO2 34 mEq/L (20-26) H 02/11/18 10:15 ABG Base Excess 4 mEq/L (-2 to 3) H 02/11/18 10:15 Carbon Dioxide 30 mEq/L (23-29) H 02/12/18 07:16 Glucose 112 mg/dL (70-105) H 02/12/18 07:16 - Diagnostic Findings Chest x-ray: report reviewed, image reviewed CT scan - chest: report reviewed, image reviewed - Clinical Findings Intake & Output: Intake & Output 02/11/18 02/12/18 02/12/18 23:59 07:59 15:59 Intake Total 0 / 0 240 / 240 Output Total 0 / 0 0 / 0 Balance 0 / 0 240 / 240 Weight 63.4 kg Consult Discharge Plan - Plan Referrals: Oli Mcfarlane MD [Non-Partnered Physician] -
[2018-02-12] MEDS ORDERED: *HR* LORazepam 2 MG/ML VIAL IVP ONE (09:43)
[2018-02-12] MEDS: Budesonide/Formoterol 160/4.5 MDI IH SCH ×2 (10:04→22:41)
[2018-02-12] MEDS: MethylPREDNISolone 40 MG/ML VIAL IVP SCH ×3 (10:55→18:05)
[2018-02-12] MEDS: Aspirin 325 MG TABLET PO SCH (10:55)
[2018-02-12] MEDS: Cyanocobalamin (B-12) 1,000 MCG TABLET PO SCH (10:55)
[2018-02-12] MEDS: Doxycycline 100 MG CAPSULE PO SCH (10:55)
--- NOTE | 2018-02-12 14:09 | Internal Med Progress Note ---
Date of Encounter: 02/12/18 Time of Encounter: 11:41 - Assessment and plan (1) Acute exacerbation of chronic obstructive airways disease Current Visit: Yes Status: Acute Assessment and plan: Continue systemic steroids Methylprednisolone 40mg IV q8h), bronchodilator support O2 supplementation bipap support continue LABA/ICS respiratory infection panel negative pulmonary evaluation appreciated CT chest findings noted, broadened abx coverage will closely monitor respiratory status code status: DNR/DNI (2) Acute and chronic respiratory failure Current Visit: Yes Status: Acute Assessment and plan: Secondary to COPD exacerbation plan as listed above Qualifiers: Respiratory failure complication: hypoxia Qualified Code(s): J96.21 - Acute and chronic respiratory failure with hypoxia (3) Essential hypertension Current Visit: Yes Status: Chronic Assessment and plan: BP within acceptable range continue home medications (4) CKD (chronic kidney disease), stage III Current Visit: Yes Status: Chronic Assessment and plan: Renal function at baseline continue to avoid nephrotoxic agents monitor renal function (5) DVT prophylaxis Current Visit: Yes Status: Acute Assessment and plan: Heparin SQ - Time Spent With Patient Total time spent is greater than 50% in coordination of care (as documented) at patient's floor/unit and/or counseling patient: - Subjective Interval history: Patient seen and examined with RN present at bedside. Pt currently saturating well on 6L NC and reports of feeling better compared to previous day. CT chest reported findings concerning for PNA. ABX coverage broadened given persistent symptoms. Pulmonary evaluation appreciated. - Constitutional Vitals: Temp Pulse Resp BP Pulse Ox 97.6 F 99 18 128/69 90 02/12/18 11:03 02/12/18 11:03 02/12/18 11:03 02/12/18 11:03 02/12/18 11:03 General appearance: Present: A&O X 3, no acute distress, answers questions appropriately - Head Head exam: Present: atraumatic, normocephalic - Eye Eye exam: Present: conjuntiva pink, sclera anicteric - Respiratory Respiratory exam: Absent: rales, respiratory distress, wheezes (decreased breath sounds with minimal air entry bilaterally ) - Cardiovascular Cardiovascular exam: Present: RRR, +S1, +S2. Absent: diastolic murmur, gallop, rubs, systolic murmur - GI/Abdominal GI/Abdominal exam: Present: normal bowel sounds, soft, no peritoneal signs. Absent: distended, tenderness - Extremities Exam Extremities exam: Present: warm, radial pulses palpable and symmetrical. Absent : calf tenderness, tenderness - Neurological Exam Neurological exam: Present: oriented X3 Internal Medicine: Result - Labs CBC & Chem 7: 02/12/18 07:16 02/12/18 07:16 Labs: Short CBC 02/12/18 Range/Units 07:16 WBC 15.3 H D (4.3-11.1) K/mcL Hgb 11.9 (11.5-15.4) g/dL Hct 38.1 (35.3-44.9) % Plt Count 169 (140-400) K/mcL Neutrophils # 13.9 H (1.6-8.9) K/mcL BMP 02/12/18 07:16 Sodium 140 Potassium 4.9 Chloride 107 Carbon Dioxide 30 H BUN 19 Creatinine 0.77 Glucose 112 H Calcium 9.3 - ABG Interpretation ABG results: ABG ABG pH 7.33 pH Units (7.32-7.45) 02/11/18 10:15 ABG pCO2 61 mmHg (35-45) H 02/11/18 10:15 ABG pO2 89 mmHg (85-104) 02/11/18 10:15 ABG O2 Saturation 96 % (95-98) 02/11/18 10:15 - Impressions Impressions Chest CT 02/11/18 12:25 IMPRESSION: Patchy ground-glass opacity in the left upper lobe and superior segment left lower lobe, likely postinflammatory or infectious. . Secretions are seen in the airways Underlying emphysema with stable pulmonary nodule right middle lobe. There is a new tiny 2-3 mm nodule in the left lower lobe. Recommend close attention on follow-up D/ / Reid Shields MD / Reid Shields MD Interpreting Provider: Reid Shields MD Consult Discharge Plan - Plan Referrals: Oli Mcfarlane MD [Non-Partnered Physician] - (called and left a message for an appt., will try to call back) José Miguel Oro MD [Partnered Physician] - (call for an outpatient follow up, upon discharge)
[2018-02-12] MEDS: levoFLOXacin 750 MG TABLET PO SCH (18:05)
[2018-02-13] MEDS: *HR* Heparin 5,000 UNIT/ML VIAL SQ SCH ×4 (00:31→23:14)
[2018-02-13] MEDS: MethylPREDNISolone 40 MG/ML VIAL IVP SCH ×3 (00:32→17:57)
[2018-02-13] MEDS: Levalbuterol Neb 1.25 MG/3 ML IH SCH ×4 (04:50→21:15)
[2018-02-13] MEDS: Ipratropium Neb 0.5 MG NEBULIZER IH SCH ×4 (04:50→21:15)
[2018-02-13 06:02] LABS: Basophils % 0.1 %; Hemoglobin 11.8 g/dL (11.5-15.4); Lymphocytes # 0.9 K/mcL (0.6-4.6); Lymphocytes % 8.1 %; Mean Corpuscular HGB Conc 31.9 g/dL (31.6-35.5); Mean Corpuscular Hemoglobin 31.7 pg (28.0-33.3); Mean Corpuscular Volume 99.5 fL (83.0-100.0); Mean Platelet Volume 10.4 fL (9.4-12.4); Monocytes # 0.5 K/mcL (0.0-1.3); Monocytes % 4.5 %; Neutrophils # 9.4 K/mcL (1.6-8.9); Platelet Count 151 K/mcL (140-400); Red Blood Count 3.72 M/mcL (3.82-4.97); Red Cell Distribution Width 13.4 % (11.5-14.5); Segmented Neutrophils % 86.3 %
[2018-02-13 06:23] LABS: BUN/Creatinine Ratio 26 (6-26); Blood Urea Nitrogen 20 mg/dL (8-23); Calcium 9.1 mg/dL (8.6-10.3); Carbon Dioxide 33 mEq/L (23-29); Chloride 102 mEq/L (98-107); Glucose 105 mg/dL (70-105); Magnesium 2.1 mg/dL (1.6-2.6); Osmolality,Calculated 291 (280-300); Phosphorous 2.7 mg/dL (2.7-4.5); Potassium 4.8 mEq/L (3.5-5.1); Sodium 139 mEq/L (136-145); eGFR For African Americans > 60 (> 60); eGFR For Non-African Americans > 60 (> 60)
--- NOTE | 2018-02-13 08:18 | Pulmonology Progress Note ---
Date of Encounter: 02/13/18 Time of Encounter: 08:18 Assessment and Plan (1) Acute and chronic respiratory failure Current Visit: Yes Status: Acute This is secondary to COPD exacerbation with pneumonia Continue several oxygen to keep saturation greater than 80% to around 92% Getting her out of the bed and into the chair incentive spirometry and early ambulation is also important in general terms to decrease VQ mismatching Qualifiers: Respiratory failure complication: hypoxia Qualified Code(s): J96.21 - Acute and chronic respiratory failure with hypoxia (2) Acute exacerbation of chronic obstructive airways disease Current Visit: Yes Status: Acute COPD exacerbation secondary to pneumonia Transitioned to oral prednisone 40 mg to taper over 2 weeks Cont bronchodilators as scheduled Continued metered-dose inhaler Pulmonary follow-up in 2-4 weeks at the time of discharge (3) Elevated brain natriuretic peptide (BNP) level Current Visit: Yes Status: Acute Diastolic dysfunction may be contributing to shortness of breath but I think this is a more minor player compared to airways disease with exacerbation and pneumonia (4) Pneumonia Current Visit: Yes Status: Acute Continue Levaquin for 7 days white count trending down clinically improving Pulmonary will sign off. Please call with question Qualifiers: Laterality: bilateral Lung location: upper lobe of lung Qualified Code(s) : J18.1 - Lobar pneumonia, unspecified organism Subjective Principal diagnosis: AECOPD Interval history: Today the patient states that she is doing little better. She looked much more comfortable is up eating breakfast. She has started to be concerned about receiving injections of heparin saying that it the medication was "unnatural" I explained that this was given to prevent blood clots to which she replied at least that is natural at [facility] plan. I explained that if she did not want to continue to take the heparin that would be okay but she would be at risk for blood clot. She is also requesting to be started back on home dose of Zetia. Objective PUL Vital signs: Last Vital Signs Temp 97.6 F 02/13/18 07:18 Pulse 71 02/13/18 07:18 Resp 22 02/13/18 07:18 BP 135/55 02/13/18 07:18 Pulse Ox 92 02/13/18 07:18 General appearance: no acute distress Auscultation: bilateral: diminished breath sounds, wheezes Cardiovascular: regular rate and rhythm Extremities: no edema non-focal exam Results - Laboratory Findings CBC and BMP: 02/13/18 05:18 02/13/18 05:18 ABG ABG pH 7.33 pH Units (7.32-7.45) 02/11/18 10:15 ABG pCO2 61 mmHg (35-45) H 02/11/18 10:15 ABG pO2 89 mmHg (85-104) 02/11/18 10:15 ABG O2 Saturation 96 % (95-98) 02/11/18 10:15 Abnormal lab findings: Abnormal lab results RBC 3.72 M/mcL (3.82-4.97) L 02/13/18 05:18 Neutrophils # 9.4 K/mcL (1.6-8.9) H 02/13/18 05:18 ABG pCO2 61 mmHg (35-45) H 02/11/18 10:15 ABG HCO3 32 mEq/L (21-27) H 02/11/18 10:15 ABG Total CO2 34 mEq/L (20-26) H 02/11/18 10:15 ABG Base Excess 4 mEq/L (-2 to 3) H 02/11/18 10:15 Carbon Dioxide 33 mEq/L (23-29) H 02/13/18 05:18 - Clinical Findings Intake & Output: Intake & Output 02/12/18 02/13/18 02/13/18 23:59 07:59 15:59 Output Total 300 / 300 900 / 900 Balance -300 / -300 -900 / -900 Weight 72 kg Consult Discharge Plan - Plan Referrals: Oli Mcfarlane MD [Non-Partnered Physician] - (called and left a message for an appt., will try to call back) José Miguel Oro MD [Partnered Physician] - (call for an outpatient follow up, upon discharge)
[2018-02-13] MEDS: Cyanocobalamin (B-12) 1,000 MCG TABLET PO SCH (09:05)
[2018-02-13] MEDS: Aspirin 325 MG TABLET PO SCH (09:05)
[2018-02-13] MEDS: Budesonide/Formoterol 160/4.5 MDI IH SCH ×2 (10:08→21:15)
[2018-02-13] MEDS ORDERED: ALPRAZolam 0.25 MG TABLET PO ONE (12:49)
--- NOTE | 2018-02-13 13:06 | Internal Med Progress Note ---
Date of Encounter: 02/13/18 Time of Encounter: 12:40 - Assessment and plan (1) Acute exacerbation of chronic obstructive airways disease Current Visit: Yes Status: Acute Assessment and plan: Continue systemic steroids Methylprednisolone 40mg IV q12h), bronchodilator support O2 supplementation bipap support continue LABA/ICS respiratory infection panel negative pulmonary evaluation appreciated CT chest findings noted, broadened abx coverage will closely monitor respiratory status code status: DNR/DNI (2) Acute and chronic respiratory failure Current Visit: Yes Status: Acute Assessment and plan: Secondary to COPD exacerbation plan as listed above Qualifiers: Respiratory failure complication: hypoxia Qualified Code(s): J96.21 - Acute and chronic respiratory failure with hypoxia (3) Essential hypertension Current Visit: Yes Status: Chronic Assessment and plan: BP within acceptable range continue home medications (4) CKD (chronic kidney disease), stage III Current Visit: Yes Status: Chronic Assessment and plan: Renal function at baseline continue to avoid nephrotoxic agents monitor renal function (5) DVT prophylaxis Current Visit: Yes Status: Acute Assessment and plan: Heparin SQ - Time Spent With Patient Total time spent is greater than 50% in coordination of care (as documented) at patient's floor/unit and/or counseling patient: - Subjective Interval history: Patient seen and examined at bedside. Resting in bed and saturating well on nasal cannula. continues to remain anxious and reports of getting adequate relief with ativan. - Constitutional Vitals: Temp Pulse Resp BP Pulse Ox 97.9 F 81 18 121/65 95 02/13/18 10:57 02/13/18 10:57 02/13/18 10:57 02/13/18 10:57 02/13/18 10:57 General appearance: Present: A&O X 3, no acute distress, answers questions appropriately - Head Head exam: Present: atraumatic, normocephalic - Eye Eye exam: Present: conjuntiva pink, sclera anicteric - Respiratory Respiratory exam: Present: wheezes (b/l expiratory wheezing and decreased breath sounds). Absent: respiratory distress - Cardiovascular Cardiovascular exam: Present: RRR, +S1, +S2. Absent: diastolic murmur, gallop, rubs, systolic murmur - GI/Abdominal GI/Abdominal exam: Present: normal bowel sounds, soft, no peritoneal signs. Absent: distended, tenderness - Extremities Exam Extremities exam: Present: warm, radial pulses palpable and symmetrical. Absent : calf tenderness, tenderness - Neurological Exam Neurological exam: Present: oriented X3 Internal Medicine: Result - Labs CBC & Chem 7: 02/13/18 05:18 02/13/18 05:18 Labs: Short CBC 02/13/18 Range/Units 05:18 WBC 10.8 (4.3-11.1) K/mcL Hgb 11.8 (11.5-15.4) g/dL Hct 37.0 (35.3-44.9) % Plt Count 151 (140-400) K/mcL Neutrophils # 9.4 H (1.6-8.9) K/mcL BMP 02/13/18 05:18 Sodium 139 Potassium 4.8 Chloride 102 Carbon Dioxide 33 H BUN 20 Creatinine 0.77 Glucose 105 Calcium 9.1 - ABG Interpretation ABG results: ABG ABG pH 7.33 pH Units (7.32-7.45) 02/11/18 10:15 ABG pCO2 61 mmHg (35-45) H 02/11/18 10:15 ABG pO2 89 mmHg (85-104) 02/11/18 10:15 ABG O2 Saturation 96 % (95-98) 02/11/18 10:15 Consult Discharge Plan - Plan Referrals: Oli Mcfarlane MD [Non-Partnered Physician] - (called and left a message for an appt., will try to call back) José Miguel Oro MD [Partnered Physician] - (call for an outpatient follow up, upon discharge)
[2018-02-13] MEDS ORDERED: *HR* LORazepam 2 MG/ML VIAL IVP ONE (17:45)
[2018-02-13] MEDS: levoFLOXacin 750 MG TABLET PO SCH (17:56)
[2018-02-13 19:08] LABS: Adenovirus Not Detected (Not Detect); Bordetella Pertussis Not Detected (Not Detect); Coronavirus 229E Not Detected (Not Detect); Coronavirus HKU1 Not Detected (Not Detect); Coronavirus NL63 Not Detected (Not Detect); Coronavirus OC43 Not Detected (Not Detect); Human Metapneumovirus Not Detected (Not Detect); Human Rhinovirus/Enterovirus Not Detected (Not Detect); Influenza A Subtype 2009 H1 Not Detected (Not Detect); Influenza A Untypeable Not Detected (Not Detect); Influenza B ***DETECTED*** (Not Detect); Parainfluenza Virus 1 Not Detected (Not Detect); Parainfluenza Virus 2 Not Detected (Not Detect); Parainfluenza Virus 3 Not Detected (Not Detect); Parainfluenza Virus 4 Not Detected (Not Detect); Respiratory Syncytial Virus Not Detected (Not Detect)
[2018-02-13 19:09] LABS: Chlamydophila pneumoniae Not Detected (Not Detect); Mycoplasma pneumoniae Not Detected (Not Detect)
[2018-02-14 04:13] LABS: Basophils % 0.2 %; Hemoglobin 13.1 g/dL (11.5-15.4); Immature Granulocytes % 2.7 % (0-4); Lymphocytes # 0.7 K/mcL (0.6-4.6); Lymphocytes % 7.7 %; Mean Corpuscular Hemoglobin 31.7 pg (28.0-33.3); Mean Corpuscular Volume 99.3 fL (83.0-100.0); Mean Platelet Volume 10.1 fL (9.4-12.4); Monocytes # 0.5 K/mcL (0.0-1.3); Monocytes % 5.1 %; Neutrophils # 7.9 K/mcL (1.6-8.9); Platelet Count 183 K/mcL (140-400); Red Blood Count 4.13 M/mcL (3.82-4.97); Red Cell Distribution Width 13.2 % (11.5-14.5); Segmented Neutrophils % 84.3 %
[2018-02-14 04:33] LABS: BUN/Creatinine Ratio 25 (6-26); Blood Urea Nitrogen 21 mg/dL (8-23); Calcium 9.7 mg/dL (8.6-10.3); Carbon Dioxide 33 mEq/L (23-29); Chloride 99 mEq/L (98-107); Glucose 121 mg/dL (70-105); Magnesium 2.2 mg/dL (1.6-2.6); Osmolality,Calculated 294 (280-300); Phosphorous 2.9 mg/dL (2.7-4.5); Potassium 4.6 mEq/L (3.5-5.1); Sodium 140 mEq/L (136-145); eGFR For African Americans > 60 (> 60); eGFR For Non-African Americans > 60 (> 60)
[2018-02-14] MEDS: Ipratropium Neb 0.5 MG NEBULIZER IH SCH ×4 (04:41→22:19)
[2018-02-14] MEDS: Levalbuterol Neb 1.25 MG/3 ML IH SCH ×4 (04:41→22:19)
[2018-02-14] MEDS: MethylPREDNISolone 40 MG/ML VIAL IVP SCH ×2 (05:10→17:11)
[2018-02-14] MEDS: *HR* Heparin 5,000 UNIT/ML VIAL SQ SCH ×2 (08:48→14:21)
[2018-02-14] MEDS: Aspirin 325 MG TABLET PO SCH (08:54)
[2018-02-14] MEDS: Cyanocobalamin (B-12) 1,000 MCG TABLET PO SCH (08:54)
[2018-02-14] MEDS: Budesonide/Formoterol 160/4.5 MDI IH SCH ×2 (10:03→22:20)
--- NOTE | 2018-02-14 11:40 | Internal Med Progress Note ---
Date of Encounter: 02/14/18 Time of Encounter: 11:38 - Assessment and plan (1) Acute exacerbation of chronic obstructive airways disease Current Visit: Yes Status: Acute Assessment and plan: Continue systemic steroids Methylprednisolone 40mg IV q12h), bronchodilator support O2 supplementation bipap support continue LABA/ICS respiratory infection panel negative pulmonary evaluation appreciated CT chest findings noted, broadened abx coverage will closely monitor respiratory status code status: DNR/DNI Acute exacerbation of COPD complicated by PNA and influenza (2) Acute and chronic respiratory failure Current Visit: Yes Status: Acute Assessment and plan: Secondary to COPD exacerbation plan as listed above Qualifiers: Respiratory failure complication: hypoxia Qualified Code(s): J96.21 - Acute and chronic respiratory failure with hypoxia (3) Essential hypertension Current Visit: Yes Status: Chronic Assessment and plan: BP within acceptable range continue home medications (4) CKD (chronic kidney disease), stage III Current Visit: Yes Status: Chronic Assessment and plan: Renal function at baseline continue to avoid nephrotoxic agents monitor renal function (5) DVT prophylaxis Current Visit: Yes Status: Acute Assessment and plan: Heparin SQ (6) Influenza Current Visit: Yes Status: Acute Assessment and plan: started tamiflu - Time Spent With Patient Total time spent is greater than 50% in coordination of care (as documented) at patient's floor/unit and/or counseling patient: - Subjective Interval history: Patient seen and examined at bedside. Resting comfortably in bed. Respiratory panel positive for influenza pt remains O2 dependent requiring 5-6L NC support, while her baseline is 2L at home. Will continue O2 titration as tolerated, and pt may need higher dose of O2 supplementation upon discharge. - Constitutional Vitals: Temp Pulse Resp BP Pulse Ox 98.4 F 68 22 150/76 95 02/14/18 07:15 02/14/18 07:15 02/14/18 10:08 02/14/18 07:15 02/14/18 10:08 General appearance: Present: A&O X 3, no acute distress, answers questions appropriately - Head Head exam: Present: atraumatic, normocephalic - Eye Eye exam: Present: conjuntiva pink, sclera anicteric - Respiratory Respiratory exam: Absent: respiratory distress (equal air entry bilaterally with mild expiratory wheezing on b/l apices) - Cardiovascular Cardiovascular exam: Present: RRR, +S1, +S2. Absent: diastolic murmur, gallop, rubs, systolic murmur - GI/Abdominal GI/Abdominal exam: Present: normal bowel sounds, soft, no peritoneal signs. Absent: distended, tenderness - Extremities Exam Extremities exam: Present: warm, radial pulses palpable and symmetrical. Absent : calf tenderness, cyanotic, pedal edema - Neurological Exam Neurological exam: Present: oriented X3 Internal Medicine: Result - Labs CBC & Chem 7: 02/14/18 03:30 02/14/18 03:30 Labs: Short CBC 02/14/18 Range/Units 03:30 WBC 9.3 (4.3-11.1) K/mcL Hgb 13.1 (11.5-15.4) g/dL Hct 41.0 (35.3-44.9) % Plt Count 183 (140-400) K/mcL Neutrophils # 7.9 (1.6-8.9) K/mcL BMP 02/14/18 03:30 Sodium 140 Potassium 4.6 Chloride 99 Carbon Dioxide 33 H BUN 21 Creatinine 0.85 Glucose 121 H Calcium 9.7 - ABG Interpretation ABG results: ABG ABG pH 7.33 pH Units (7.32-7.45) 02/11/18 10:15 ABG pCO2 61 mmHg (35-45) H 02/11/18 10:15 ABG pO2 89 mmHg (85-104) 02/11/18 10:15 ABG O2 Saturation 96 % (95-98) 02/11/18 10:15 Consult Discharge Plan - Plan Referrals: Oli Mcfarlane MD [Non-Partnered Physician] - (called and left a message for an appt., will try to call back) José Miguel Oro MD [Partnered Physician] - (call for an outpatient follow up, upon discharge)
[2018-02-14] MEDS: levoFLOXacin 750 MG TABLET PO SCH (14:18)
[2018-02-15] MEDS: *HR* Heparin 5,000 UNIT/ML VIAL SQ SCH ×3 (00:16→15:37)
[2018-02-15] MEDS: Ipratropium Neb 0.5 MG NEBULIZER IH SCH ×4 (03:55→21:50)
[2018-02-15] MEDS: Levalbuterol Neb 1.25 MG/3 ML IH SCH ×4 (03:55→21:50)
[2018-02-15] MEDS: MethylPREDNISolone 40 MG/ML VIAL IVP SCH ×2 (05:48→18:37)
[2018-02-15] MEDS: Aspirin 325 MG TABLET PO SCH (07:40)
[2018-02-15] MEDS: Cyanocobalamin (B-12) 1,000 MCG TABLET PO SCH (07:40)
[2018-02-15 07:46] LABS: Basophils % 0.2 %; Hematocrit 42.2 % (35.3-44.9); Hemoglobin 13.7 g/dL (11.5-15.4); Immature Granulocytes % 2.3 % (0-4); Lymphocytes % 10.6 %; Mean Corpuscular HGB Conc 32.5 g/dL (31.6-35.5); Mean Corpuscular Volume 98.6 fL (83.0-100.0); Mean Platelet Volume 9.6 fL (9.4-12.4); Monocytes # 0.6 K/mcL (0.0-1.3); Monocytes % 6.1 %; Neutrophils # 7.7 K/mcL (1.6-8.9); Nucleated Red Blood Cells 0.2 /100 WBC (0); Platelet Count 182 K/mcL (140-400); Red Blood Count 4.28 M/mcL (3.82-4.97); Red Cell Distribution Width 13.2 % (11.5-14.5); Segmented Neutrophils % 80.8 %
[2018-02-15 07:55] LABS: BUN/Creatinine Ratio 26 (6-26); Blood Urea Nitrogen 24 mg/dL (8-23); Calcium 9.8 mg/dL (8.6-10.3); Carbon Dioxide 35 mEq/L (23-29); Chloride 98 mEq/L (98-107); Glucose 97 mg/dL (70-105); Magnesium 2.3 mg/dL (1.6-2.6); Osmolality,Calculated 284 (280-300); Phosphorous 3.2 mg/dL (2.7-4.5); Potassium 4.9 mEq/L (3.5-5.1); Sodium 135 mEq/L (136-145); eGFR For African Americans > 60 (> 60); eGFR For Non-African Americans > 60 (> 60)
[2018-02-15] MEDS: Budesonide/Formoterol 160/4.5 MDI IH SCH ×2 (10:04→21:50)
--- NOTE | 2018-02-15 10:58 | Internal Med Progress Note ---
Date of Encounter: 02/15/18 Time of Encounter: 10:55 - Assessment and plan (1) Acute exacerbation of chronic obstructive airways disease Current Visit: Yes Status: Acute Assessment and plan: Continue systemic steroids Methylprednisolone 40mg IV q12h), bronchodilator support O2 supplementation bipap support continue LABA/ICS respiratory infection panel positive for influenza pulmonary evaluation appreciated CT chest findings noted, broadened abx coverage will closely monitor respiratory status code status: DNR/DNI incentive spirometry Acute exacerbation of COPD complicated by PNA and influenza (2) Acute and chronic respiratory failure Current Visit: Yes Status: Acute Assessment and plan: Secondary to COPD exacerbation plan as listed above Qualifiers: Respiratory failure complication: hypoxia Qualified Code(s): J96.21 - Acute and chronic respiratory failure with hypoxia (3) Essential hypertension Current Visit: Yes Status: Chronic Assessment and plan: BP within acceptable range continue home medications (4) CKD (chronic kidney disease), stage III Current Visit: Yes Status: Chronic Assessment and plan: Renal function at baseline continue to avoid nephrotoxic agents monitor renal function (5) DVT prophylaxis Current Visit: Yes Status: Acute Assessment and plan: Heparin SQ (6) Influenza Current Visit: Yes Status: Acute Assessment and plan: continue tamiflu (day 2/5) - Time Spent With Patient Total time spent is greater than 50% in coordination of care (as documented) at patient's floor/unit and/or counseling patient: - Subjective Interval history: Patient seen and examined at bedside. Resting comfortably in bed. Respiratory panel positive for influenza pt remains O2 dependent however O2 demand decreasing, currently saturating well on 4L, will continue to titrate down O2 sat as tolerated, baseline home O2: 2L. Will continue O2 titration as tolerated, and pt may need higher dose of O2 supplementation upon discharge. - Constitutional Vitals: Temp Pulse Resp BP Pulse Ox 97.9 F 90 18 159/83 93 02/15/18 07:00 02/15/18 07:00 02/15/18 10:04 02/15/18 07:00 02/15/18 10:04 General appearance: Present: A&O X 3, no acute distress, answers questions appropriately - Head Head exam: Present: atraumatic, normocephalic - Eye Eye exam: Present: conjuntiva pink, sclera anicteric - Respiratory Respiratory exam: Absent: respiratory distress (mild bilateral expiratory wheezing with decreased breath sounds ) - Cardiovascular Cardiovascular exam: Present: RRR, +S1, +S2. Absent: diastolic murmur, gallop, rubs, systolic murmur - GI/Abdominal GI/Abdominal exam: Present: normal bowel sounds, soft, no peritoneal signs. Absent: distended, tenderness - Extremities Exam Extremities exam: Present: warm, radial pulses palpable and symmetrical. Absent : calf tenderness, tenderness - Neurological Exam Neurological exam: Present: oriented X3 Internal Medicine: Result - Labs CBC & Chem 7: 02/15/18 07:10 02/15/18 07:10 Labs: Short CBC 02/15/18 Range/Units 07:10 WBC 9.6 (4.3-11.1) K/mcL Hgb 13.7 (11.5-15.4) g/dL Hct 42.2 (35.3-44.9) % Plt Count 182 (140-400) K/mcL Neutrophils # 7.7 (1.6-8.9) K/mcL BMP 02/15/18 07:10 Sodium 135 L Potassium 4.9 Chloride 98 Carbon Dioxide 35 H BUN 24 H Creatinine 0.91 Glucose 97 Calcium 9.8 - ABG Interpretation ABG results: ABG ABG pH 7.33 pH Units (7.32-7.45) 02/11/18 10:15 ABG pCO2 61 mmHg (35-45) H 02/11/18 10:15 ABG pO2 89 mmHg (85-104) 02/11/18 10:15 ABG O2 Saturation 96 % (95-98) 02/11/18 10:15 Consult Discharge Plan - Plan Referrals: Oli Mcfarlane MD [Non-Partnered Physician] - (called and left a message for an appt., will try to call back) José Miguel Oro MD [Partnered Physician] - (call for an outpatient follow up, upon discharge)
[2018-02-15] MEDS: levoFLOXacin 750 MG TABLET PO SCH (15:14)
[2018-02-16] MEDS: *HR* Heparin 5,000 UNIT/ML VIAL SQ SCH ×3 (00:32→17:12)
[2018-02-16] MEDS: Ipratropium Neb 0.5 MG NEBULIZER IH SCH ×4 (03:46→22:32)
[2018-02-16] MEDS: Levalbuterol Neb 1.25 MG/3 ML IH SCH ×4 (03:46→22:32)
[2018-02-16] MEDS: MethylPREDNISolone 40 MG/ML VIAL IVP SCH (05:46)
[2018-02-16] MEDS: Budesonide/Formoterol 160/4.5 MDI IH SCH ×2 (10:01→22:32)
[2018-02-16] MEDS: Aspirin 325 MG TABLET PO SCH (10:46)
[2018-02-16] MEDS: Cyanocobalamin (B-12) 1,000 MCG TABLET PO SCH (10:46)
--- NOTE | 2018-02-16 10:49 | Internal Med Progress Note ---
Date of Encounter: 02/16/18 Time of Encounter: 11:17 - Assessment and plan (1) Acute exacerbation of chronic obstructive airways disease Current Visit: Yes Status: Acute Assessment and plan: Continue systemic steroids d/c Solumedrol and start PO Prednisone, pt will will slow taper upon discharge), bronchodilator support O2 supplementation bipap support continue LABA/ICS respiratory infection panel positive for influenza pulmonary evaluation appreciated CT chest findings noted, broadened abx coverage will closely monitor respiratory status code status: DNR/DNI incentive spirometry Acute exacerbation of COPD complicated by PNA and influenza (2) Acute and chronic respiratory failure Current Visit: Yes Status: Acute Assessment and plan: Secondary to COPD exacerbation plan as listed above Qualifiers: Respiratory failure complication: hypoxia Qualified Code(s): J96.21 - Acute and chronic respiratory failure with hypoxia (3) Essential hypertension Current Visit: Yes Status: Chronic Assessment and plan: BP within acceptable range continue home medications (4) CKD (chronic kidney disease), stage III Current Visit: Yes Status: Chronic Assessment and plan: Renal function at baseline continue to avoid nephrotoxic agents monitor renal function (5) DVT prophylaxis Current Visit: Yes Status: Acute Assessment and plan: Heparin SQ (6) Influenza Current Visit: Yes Status: Acute Assessment and plan: continue tamiflu (day 3/5) - Time Spent With Patient Total time spent is greater than 50% in coordination of care (as documented) at patient's floor/unit and/or counseling patient: - Subjective Interval history: Patient seen and examined with RN present at bedside. pt having an anxiety attack stating she cannot breath, she is suffocating, O2 saturations above 88% on2L NC. Pt to be given one time dose of xanax. It appears patient's symptoms started shortly after she was told she is going to be discharged. She is noted to be tachypneic with use of accessory muscle use. Discharge held until am. Will start PO steroids today - Constitutional Vitals: Temp Pulse Resp BP Pulse Ox 97.7 F 93 22 136/77 92 02/16/18 07:03 02/16/18 07:03 02/16/18 10:04 02/16/18 07:03 02/16/18 10:04 General appearance: Present: A&O X 3, no acute distress, answers questions appropriately - Head Head exam: Present: atraumatic, normocephalic - Eye Eye exam: Present: conjuntiva pink, sclera anicteric - Respiratory Respiratory exam: Absent: respiratory distress (decreased breath sounds but improved aeration bilaterally, minimal expiratory wheezing bilaterally ) - Cardiovascular Cardiovascular exam: Present: +S1, +S2, tachycardia (sinus tach). Absent: diastolic murmur, gallop, rubs, systolic murmur - GI/Abdominal GI/Abdominal exam: Present: normal bowel sounds, soft, no peritoneal signs. Absent: distended, tenderness - Extremities Exam Extremities exam: Present: warm, radial pulses palpable and symmetrical. Absent : calf tenderness, pedal edema - Neurological Exam Neurological exam: Present: oriented X3 Internal Medicine: Result - Labs CBC & Chem 7: 02/15/18 07:10 02/15/18 07:10 - ABG Interpretation ABG results: ABG ABG pH 7.33 pH Units (7.32-7.45) 02/11/18 10:15 ABG pCO2 61 mmHg (35-45) H 02/11/18 10:15 ABG pO2 89 mmHg (85-104) 02/11/18 10:15 ABG O2 Saturation 96 % (95-98) 02/11/18 10:15 Consult Discharge Plan - Plan Referrals: Abril Daley CNP [Primary Care Provider] - 02/23/18 3:00 pm (Please follow up as schedule...) José Miguel Oro MD [Partnered Physician] - 03/12/18 9:30 am (Please follow up as schedule...)
[2018-02-16] MEDS ORDERED: ALPRAZolam 0.25 MG TABLET PO ONE (10:53)
[2018-02-16] MEDS: levoFLOXacin 750 MG TABLET PO SCH (17:12)
[2018-02-16] MEDS ORDERED: predniSONE 20 MG TABLET PO SCH (18:00)
[2018-02-17] MEDS: *HR* Heparin 5,000 UNIT/ML VIAL SQ SCH ×2 (01:31→09:14)
[2018-02-17] MEDS: Levalbuterol Neb 1.25 MG/3 ML IH SCH ×3 (03:49→15:56)
[2018-02-17] MEDS: Ipratropium Neb 0.5 MG NEBULIZER IH SCH ×3 (03:49→15:56)
[2018-02-17 05:20] LABS: Basophils # 0.1 K/mcL (0.0-0.2); Basophils % 0.4 %; Eosinophils % 0.1 %; Hematocrit 46.4 % (35.3-44.9); Hemoglobin 14.7 g/dL (11.5-15.4); Immature Granulocytes % 2.3 % (0-4); Lymphocytes # 0.9 K/mcL (0.6-4.6); Lymphocytes % 6.8 %; Mean Corpuscular HGB Conc 31.7 g/dL (31.6-35.5); Mean Corpuscular Hemoglobin 30.9 pg (28.0-33.3); Mean Corpuscular Volume 97.7 fL (83.0-100.0); Mean Platelet Volume 9.4 fL (9.4-12.4); Monocytes # 0.6 K/mcL (0.0-1.3); Monocytes % 4.6 %; Neutrophils # 11.2 K/mcL (1.6-8.9); Platelet Count 197 K/mcL (140-400); Red Blood Count 4.75 M/mcL (3.82-4.97); Red Cell Distribution Width 13.7 % (11.5-14.5); Segmented Neutrophils % 85.8 %
[2018-02-17 05:39] LABS: Carbon Dioxide 36 mEq/L (23-29); Chloride 96 mEq/L (98-107); Glucose 125 mg/dL (70-105); Magnesium 2.3 mg/dL (1.6-2.6); Phosphorous 4.1 mg/dL (2.7-4.5); Potassium 5.2 mEq/L (3.5-5.1); Sodium 136 mEq/L (136-145); eGFR For African Americans > 60 (> 60); eGFR For Non-African Americans > 60 (> 60)
[2018-02-17 07:16] LABS: BUN/Creatinine Ratio 32 (6-26); Blood Urea Nitrogen 28 mg/dL (8-23); Osmolality,Calculated 289 (280-300)
[2018-02-17] MEDS ORDERED: Oseltamivir Phosphate 30 MG CAPSULE PO SCH (09:00)
[2018-02-17] MEDS: Aspirin 325 MG TABLET PO SCH (09:18)
[2018-02-17] MEDS: Cyanocobalamin (B-12) 1,000 MCG TABLET PO SCH (09:19)
[2018-02-17] MEDS: Budesonide/Formoterol 160/4.5 MDI IH SCH (10:24)
[2018-02-17 10:34] VITALS: BP 116/71
--- NOTE | 2018-02-17 13:33 | Discharge Summary ---
- NOTES TO OUTPATIENT PROVIDER Notes to Outpatient Provider: pt is discharged on prednisone taper Date of Encounter: 02/17/18 Time of Encounter: 13:29 - Discharge Diagnosis (1) Acute exacerbation of chronic obstructive airways disease Priority: Primary Status: Acute (2) Acute and chronic respiratory failure Priority: Primary Status: Acute Qualifiers: Respiratory failure complication: hypoxia Qualified Code(s): J96.21 - Acute and chronic respiratory failure with hypoxia (3) Essential hypertension Priority: Secondary Status: Chronic (4) CKD (chronic kidney disease), stage III Priority: Secondary Status: Chronic (5) DVT prophylaxis Priority: Secondary Status: Acute (6) Influenza Priority: Secondary Status: Acute Hospital course: Ms. Cota is a 72 year old female with PMH of COPD on LTOT, HTN, CKD, HLD who was admitted for Acute respiratory failure secondary to COPD exacerbation complicated by pneumonia and influenza. She was started on systemic steroids, bronchodilators, IV abx, and bipap support. She was followed by pulmonology. Her symptoms improved and she is currently saturating well on her baseline home oxygen. Pt is medically stable for discharge with steroid taper and outpatient follow up with pcp and pulmonary. Discharge discussed with: patient, nurse, case management - Time Spent with Patient Total time spent providing and/or coordinating discharge services: Less than 30 minutes - Discharge Medications Prescriptions: Clindamycin [Cleocin] 300 mg PO TID #5 capsule levoFLOXacin [Levaquin] 750 mg PO Q24H #2 tablet Oseltamivir Phosphate [Tamiflu] 30 mg PO BID #2 capsule Home Medications: Albuterol Sulfate [Proair Hfa] 2 puff IH QID 04/15/16 [History] Albuterol Sulfate [VoSpire ER] 8 mg PO BID 04/15/16 [History] Aspirin 325 mg PO DAILY 04/15/16 [History] Ezetimibe [Zetia] 10 mg PO DAILY 04/15/16 [History] Fluticasone/Salmeterol [Advair 250-50 Diskus] 1 each IH DAILY 04/15/16 [History] Metoprolol [Lopressor] 25 mg PO BID 04/15/16 [History] Cyanocobalamin (B-12) [Vitamin B12] 1,000 mcg PO DAILY #90 tablet 08/30/16 [Rx] Cyclosporine [Restasis] 1 drop BOTH EYES BID 02/11/18 [History] Esomeprazole Magnesium [Nexium] 40 mg PO DAILY 02/11/18 [History] Fluticasone Propionate Nasal [Flonase] 2 spr NS DAILY 02/11/18 [History] Nitroglycerin [Nitrostat] 0.4 mg SL Q5M PRN 02/11/18 [History] Ondansetron [Zofran] 8 mg PO Q8HR PRN 02/11/18 [History] Tiotropium [Spiriva] 1 puff IH DAILY 02/11/18 [History] Clindamycin [Cleocin] 300 mg PO TID #5 capsule 02/17/18 [Rx] Oseltamivir Phosphate [Tamiflu] 30 mg PO BID #2 capsule 02/17/18 [Rx] levoFLOXacin [Levaquin] 750 mg PO Q24H #2 tablet 02/17/18 [Rx] predniSONE [PredniSONE] 40 mg PO Q24H tablet 02/17/18 [Rx] Allergies/Adverse Reactions: 3 Allergy/AdvReac Type Severity Reaction Status Date / Time Iodinated Contrast- Oral and Allergy Unknown Fainting Verified 02/10/18 15:26 IV Dye [Iodinated Contrast Media - IV Dye] Penicillins Allergy Unknown unknown Verified 02/10/18 15:26 Sulfa (Sulfonamide Allergy Unknown Hives Verified 02/10/18 15:26 Antibiotics) codeine Allergy See Verified 02/10/18 15:26 Comments Date of admission: 02/10/18 20:51 Primary care physician: Abril Daley CNP Consults: 02/10/18 20:57 Consult to Pulmonology [CONS] Routine Consulting Provider: [facility] Reason for Consult: Worsening dyspnea and resp failure Call Completed: No 02/11/18 12:17 Consult to Physical Therapy [CONS] Routine Comment: Evaluate, develop and implement POC Reason for Consult: pt falling at home and weak Does patient have active BEDREST order?: No Is patient medically & hemodynamically stable?: Yes Discharging clinician: Sugar Bolaños Anticipated date of discharge: 02/17/18 - Constitutional Vitals: Temp Pulse Resp BP Pulse Ox 97.4 F L 80 20 116/71 99 02/17/18 10:32 02/17/18 10:32 02/17/18 10:32 02/17/18 10:32 02/17/18 10:32 General appearance: Present: A&O X 3, no acute distress, answers questions appropriately - Head Head exam: Present: atraumatic, normocephalic - Eye Eye exam: Present: conjuntiva pink, sclera anicteric - Respiratory Respiratory exam: Absent: rales, respiratory distress, wheezes - Cardiovascular Cardiovascular exam: Present: RRR, +S1, +S2. Absent: diastolic murmur, gallop, rubs, systolic murmur - GI/Abdominal GI/Abdominal exam: Present: normal bowel sounds, soft, no peritoneal signs. Absent: distended, tenderness - Extremities Exam Extremities exam: Present: warm, radial pulses palpable and symmetrical. Absent : calf tenderness - Neurological Exam Neurological exam: Present: oriented X3 - Patient Status Disposition: Home Health Service Condition: Good Functional capacity at discharge: independent ambulation Overall status at discharge: patient is back to baseline - Discharge Instructions Follow Up With: Abril Daley CNP [Primary Care Provider] - 02/23/18 3:00 pm (Please follow up as schedule...) José Miguel Oro MD [Partnered Physician] - 03/12/18 9:30 am (Please follow up as schedule...) Additional Instructions: Please follow up with your PCP within five days after your discharge from the hospital. Please follow up with pulmonary within one to two weeks after your discharge from the hospital. Please continue Prednisone taper as prescribed. continue oral antibiotics as prescribed. Resume all other home medications as prescribed by your primary care physician - Diet and Activity Activity: as per physical therapy, wear oxygen at all times, wear oxygen at night Diet: low fat, low cholesterol, low salt diet
[2018-02-17] MEDS: levoFLOXacin 750 MG TABLET PO SCH (14:33)
--- NOTE | 2018-02-17 15:19 | Physician Discharge Referral ---
Home Health/Hosp Referral Info Transfer to: Home Health Provider in Charge Post Discharge: PCP - Diagnosis (1) Acute exacerbation of chronic obstructive airways disease Priority: Primary Status: Acute (2) Acute and chronic respiratory failure Priority: Primary Status: Acute (3) Essential hypertension Priority: Secondary Status: Chronic (4) CKD (chronic kidney disease), stage III Priority: Secondary Status: Chronic (5) DVT prophylaxis Priority: Secondary Status: Acute (6) Influenza Priority: Secondary Status: Acute - Respiratory Orders Smoking Cessation: Smoking cessation has been advised. For more information, call the [place] Tobacco Quit Line at 9-526-AOWM-NOW. - Services Needed Following services are medically necessary services: Nursing, Home Health Aide, Physical Therapy, Occupational Therapy - Transfer Medications Prescriptions: Clindamycin [Cleocin] 300 mg PO TID #5 capsule levoFLOXacin [Levaquin] 750 mg PO Q24H #2 tablet Oseltamivir Phosphate [Tamiflu] 30 mg PO BID #2 capsule Home Medications: Albuterol Sulfate [Proair Hfa] 2 puff IH QID 04/15/16 [History] Albuterol Sulfate [VoSpire ER] 8 mg PO BID 04/15/16 [History] Aspirin 325 mg PO DAILY 04/15/16 [History] Ezetimibe [Zetia] 10 mg PO DAILY 04/15/16 [History] Fluticasone/Salmeterol [Advair 250-50 Diskus] 1 each IH DAILY 04/15/16 [History] Metoprolol [Lopressor] 25 mg PO BID 04/15/16 [History] Cyanocobalamin (B-12) [Vitamin B12] 1,000 mcg PO DAILY #90 tablet 08/30/16 [Rx] Cyclosporine [Restasis] 1 drop BOTH EYES BID 02/11/18 [History] Esomeprazole Magnesium [Nexium] 40 mg PO DAILY 02/11/18 [History] Fluticasone Propionate Nasal [Flonase] 2 spr NS DAILY 02/11/18 [History] Nitroglycerin [Nitrostat] 0.4 mg SL Q5M PRN 02/11/18 [History] Ondansetron [Zofran] 8 mg PO Q8HR PRN 02/11/18 [History] Tiotropium [Spiriva] 1 puff IH DAILY 02/11/18 [History] Clindamycin [Cleocin] 300 mg PO TID #5 capsule 02/17/18 [Rx] Oseltamivir Phosphate [Tamiflu] 30 mg PO BID #2 capsule 02/17/18 [Rx] levoFLOXacin [Levaquin] 750 mg PO Q24H #2 tablet 02/17/18 [Rx] predniSONE [PredniSONE] 40 mg PO Q24H tablet 02/17/18 [Rx] Allergies/Adverse Reactions: 3 Allergy/AdvReac Type Severity Reaction Status Date / Time Iodinated Contrast- Oral and Allergy Unknown Fainting Verified 02/10/18 15:26 IV Dye [Iodinated Contrast Media - IV Dye] Penicillins Allergy Unknown unknown Verified 02/10/18 15:26 Sulfa (Sulfonamide Allergy Unknown Hives Verified 02/10/18 15:26 Antibiotics) codeine Allergy See Verified 02/10/18 15:26 Comments Certification: Further, I certify that my clinical findings support that this patient is homebound (i.e. absences from home require considerable and taxing effort and are for medical reasons or gnosticism services or infrequently or short duration when for other reasons) because: Homebound Reason: Patient requires assistance of a person or device to safely leave home Attestation: My signature below is to certify that this patient is under my care and that I, or nurse practitioner, or a physician's resident assistant working with me, has a face-to -face encounter with this patient.
== END 2018-02-17 16:41 | disposition home health service (06) | DRG 190 ==
LOC: EMEROO 15:11 → 2ANU 15:11
PROVIDERS: ADMIT Internal Medicine; ATTEND Internal Medicine

== ENCOUNTER 2022-05-22 06:13 | Inpatient (IN) ==
[2022-05-22] MEDS: Norepinephrine 4 MG/254 ML IV.SOLN IVC SCH (10:02)
[2022-05-22] MEDS ORDERED: Artificial Tears SOLN 15 ML BOTTLE BOTH EYES PRN (10:19)
[2022-05-22] MEDS: Artificial Tears SOLN 15 ML BOTTLE BOTH EYES SCH ×4 (10:47→23:41)
[2022-05-22] MEDS: FentaNYL (PF) 1,000 MCG/100 ML IV.SOLN IVC SCH ×2 (10:47→23:40)
[2022-05-22] MEDS: Pantoprazole 40 MG VIAL IVP SCH (10:48)
[2022-05-22] MEDS ORDERED: Ondansetron 4 MG/2 ML VIAL IVP PRN (11:13)
[2022-05-22] MEDS ORDERED: Naloxone 0.4 MG/ML INJ IVP PRN (11:13)
[2022-05-22 11:36] LABS: ABG Base Excess -2 mEq/L (-2 to 3); ABG HCO3 25 mEq/L (21-27); ABG Oxygen Saturation 99 % (95-98); ABG PCO2 51 mmHg (35-45); ABG PH 7.29 pH Units (7.32-7.45); ABG PO2 174 mmHg (85-104); ABG TCO2 26 mEq/L (20-26); Blood Gas Modality AVAPS; Blood Gas VT 400 cc
[2022-05-22] MEDS: MethylPREDNISolone 40 MG/ML VIAL IVP SCH ×2 (16:13→23:40)
[2022-05-22] MEDS ORDERED: Iopamidol - 370 500 ML MLS IVP ONE (16:44)
[2022-05-22] MEDS ORDERED: *HR* Heparin 5,000 UNIT/ML VIAL IVP PRN ×4 (19:09→20:27)
[2022-05-22] MEDS ORDERED: Albuterol 2.5 MG/3 ML NEBULIZER IH PRN (19:13)
[2022-05-22] MEDS ORDERED: Heparin 25,000UNIT/250ML 1/2NS 25,000 UNIT/250 ML IV.SOLN IVC SCH (19:15)
[2022-05-22] MEDS: Ipratropium/Albuterol Neb 3 ML IH SCH ×2 (19:45→20:19)
[2022-05-22 20:00] LABS: Hematocrit 31.6 % (35.3-44.9); Immature Platelets 3.5 % (1.1-6.1); Mean Corpuscular HGB Conc 31.3 g/dL (31.6-35.5); Mean Corpuscular Hemoglobin 33.8 pg (28.0-33.3); Mean Corpuscular Volume 107.8 fL (83.0-100.0); Red Blood Count 2.93 M/mcL (3.82-4.97); Red Cell Distribution Width 15.1 % (11.5-14.5); White Blood Count 8.3 K/mcL (4.3-11.1)
[2022-05-22 20:05] LABS: Hemoglobin 9.9 g/dL (11.5-15.4)
[2022-05-22 20:10] LABS: Heparin anti-factor XA UFH < 0.04 IU/mL (0.30-0.70); INR 1.2; Prothrombin Time 13.5 Seconds (9.4-12.1)
[2022-05-22] MEDS: Chlorhexidine Rinse 15 ML MOUTHWASH MM SCH (20:25)
[2022-05-22 20:27] LABS: Calcium 8.4 mg/dL (8.6-10.3); Magnesium 1.7 mg/dL (1.6-2.6); Potassium 4.2 mEq/L (3.5-5.1); Troponin I 0.19 ng/mL (< 0.04)
[2022-05-22] MEDS ORDERED: *HR* Heparin 5,000 UNIT/ML VIAL IVP ONE (20:27)
[2022-05-22] MEDS: Heparin 25,000UNIT/250ML 1/2NS 25,000 UNIT/250 ML IV.SOLN IVC SCH (20:36)
[2022-05-23] MEDS: Ipratropium/Albuterol Neb 3 ML IH SCH ×4 (03:35→21:34)
[2022-05-23 03:54] LABS: ABG Base Excess -3 mEq/L (-2 to 3); ABG HCO3 27 mEq/L (21-27); ABG Oxygen Saturation 96 % (95-98); ABG PCO2 75 mmHg (35-45); ABG PH 7.17 pH Units (7.32-7.45); ABG PO2 102 mmHg (85-104); ABG TCO2 30 mEq/L (20-26); Blood Gas Modality ASSIST CONTROL; Blood Gas VT 400 cc
[2022-05-23 04:05] LABS: VBG Ionized Calcium 0.96 mmol/L (1.15-1.35)
[2022-05-23 04:21] LABS: Basophils % 0.1 %; Mean Corpuscular Hemoglobin 34.8 pg (28.0-33.3)
[2022-05-23 04:23] LABS: Hematocrit 40.3 % (35.3-44.9); Hemoglobin 12.7 g/dL (11.5-15.4); Immature Granulocytes % 0.5 % (0-4); Immature Platelets 3.5 % (1.1-6.1); Lymphocytes # 0.6 K/mcL (0.6-4.6); Lymphocytes % 6.4 %; Mean Corpuscular HGB Conc 31.5 g/dL (31.6-35.5); Mean Corpuscular Volume 110.4 fL (83.0-100.0); Mean Platelet Volume 10.3 fL (9.4-12.4); Monocytes # 0.3 K/mcL (0.0-1.3); Monocytes % 3.5 %; Neutrophils # 7.9 K/mcL (1.6-8.9); Red Blood Count 3.65 M/mcL (3.82-4.97); Red Cell Distribution Width 15.4 % (11.5-14.5); Segmented Neutrophils % 89.5 %; White Blood Count 8.8 K/mcL (4.3-11.1)
[2022-05-23 04:37] LABS: Platelet Count 65 K/mcL (140-400)
[2022-05-23 04:47] LABS: Calcium 8.6 mg/dL (8.6-10.3); Magnesium 1.8 mg/dL (1.6-2.6); Phosphorous 3.7 mg/dL (2.7-4.5); Potassium 4.6 mEq/L (3.5-5.1)
[2022-05-23 04:59] LABS: Platelet Estimate Decreased (Normal)
[2022-05-23 05:04] LABS: ABG Base Excess 0 mEq/L (-2 to 3); ABG HCO3 27 mEq/L (21-27); ABG Oxygen Saturation 92 % (95-98); ABG PCO2 53 mmHg (35-45); ABG PH 7.31 pH Units (7.32-7.45); ABG PO2 72 mmHg (85-104); ABG TCO2 28 mEq/L (20-26); Blood Gas Modality ASSIST CONTROL; Blood Gas VT 400 cc
[2022-05-23] MEDS ORDERED: *HR* Metoprolol 5 MG/5 ML VIAL IVP ONE ×3 (05:13→05:46)
[2022-05-23] MEDS ORDERED: 0.9 % Sodium Chloride 500 ML IVC ONE (05:24)
[2022-05-23] MEDS ORDERED: 0.9 % Sodium Chloride 500 ML ONE (05:25)
[2022-05-23] MEDS: Artificial Tears SOLN 15 ML BOTTLE BOTH EYES SCH ×5 (05:32→19:49)
[2022-05-23] MEDS ORDERED: Calcium Gluconate 1gm/50mL 1 GM/50 ML BAG IVPB PRN (05:37)
[2022-05-23] MEDS ORDERED: Perflutren Lipid Microsphere 1.3 ML in 0.9 % Sodium Chloride 8.7 ML IVP PRN (05:40)
[2022-05-23] MEDS: MethylPREDNISolone 40 MG/ML VIAL IVP SCH ×2 (09:25→15:51)
[2022-05-23] MEDS: Pantoprazole 40 MG VIAL IVP SCH (09:25)
[2022-05-23] MEDS: Chlorhexidine Rinse 15 ML MOUTHWASH MM SCH ×2 (09:26→19:49)
[2022-05-23] MEDS: levoFLOXacin 750 MG/150 ML 750 MG/150 ML BAG IVPB SCH (09:26)
[2022-05-23] MEDS: FentaNYL (PF) 1,000 MCG/100 ML IV.SOLN IVC SCH ×2 (09:54→20:47)
[2022-05-23] MEDS ORDERED: D5% in Water 1,000 ML IVC PRN (10:52)
[2022-05-23] MEDS ORDERED: *HR* Dextrose 50 % in Water (Syg) 50 ML SYRINGE IVP PRN (10:52)
[2022-05-23] MEDS ORDERED: Dextrose Gel 15 GM/37.5 ML TUBE PO PRN ×2 (10:52)
[2022-05-23] MEDS ORDERED: Amiodarone 300 MG in D5% in Water 100 ML IVPB ONE (10:56)
[2022-05-23] MEDS ORDERED: Amiodarone 150 MG in D5% in Water 100 ML IVPB ONE (10:56)
[2022-05-23] MEDS ORDERED: Amiodarone Premix 150 MG/100 ML BAG IVPB ONE (10:59)
[2022-05-23] MEDS: Amiodarone Premix 360 MG/200 ML BAG IVC SCH ×2 (11:33→17:48)
[2022-05-23] MEDS: Insulin LISPRO 300 UNITS/3 ML VIAL SUBQ SCH ×2 (12:05→18:08)
[2022-05-23 14:04] LABS: ABG Base Excess -2 mEq/L (-2 to 3); ABG HCO3 25 mEq/L (21-27); ABG Oxygen Saturation 94 % (95-98); ABG PCO2 53 mmHg (35-45); ABG PH 7.29 pH Units (7.32-7.45); ABG PO2 80 mmHg (85-104); ABG TCO2 27 mEq/L (20-26)
[2022-05-23 14:22] LABS: VBG Ionized Calcium 1.23 mmol/L (1.15-1.35)
[2022-05-23] MEDS: Norepinephrine 4 MG/254 ML IV.SOLN IVC SCH (15:35)
[2022-05-23 15:39] LABS: Magnesium 2.4 mg/dL (1.6-2.6)
[2022-05-23 15:39] LABS: ABG Base Excess -1 mEq/L (-2 to 3); ABG HCO3 25 mEq/L (21-27); ABG Oxygen Saturation 97 % (95-98); ABG PCO2 46 mmHg (35-45); ABG PH 7.35 pH Units (7.32-7.45); ABG PO2 92 mmHg (85-104); ABG TCO2 27 mEq/L (20-26); Blood Gas VT 400 cc
[2022-05-23 15:50] LABS: Thyroid Stimulating Hormone 0.828 mcIU/mL (0.340-5.600)
[2022-05-24] MEDS: Artificial Tears SOLN 15 ML BOTTLE BOTH EYES SCH ×7 (00:02→22:58)
[2022-05-24] MEDS: MethylPREDNISolone 40 MG/ML VIAL IVP SCH ×4 (00:03→22:58)
[2022-05-24] MEDS: Insulin LISPRO 300 UNITS/3 ML VIAL SUBQ SCH ×5 (01:13→22:58)
[2022-05-24] MEDS: Ipratropium/Albuterol Neb 3 ML IH SCH ×4 (03:35→21:32)
[2022-05-24 04:20] LABS: ABG Base Excess -1 mEq/L (-2 to 3); ABG HCO3 26 mEq/L (21-27); ABG Oxygen Saturation 96 % (95-98); ABG PCO2 48 mmHg (35-45); ABG PH 7.34 pH Units (7.32-7.45); ABG PO2 85 mmHg (85-104); ABG TCO2 27 mEq/L (20-26); Blood Gas Modality AF; Blood Gas VT 400 cc
[2022-05-24 04:25] LABS: VBG Ionized Calcium 1.26 mmol/L (1.15-1.35)
[2022-05-24 04:27] LABS: Hematocrit 33.8 % (35.3-44.9); Mean Corpuscular Hemoglobin 33.8 pg (28.0-33.3); Mean Corpuscular Volume 105.6 fL (83.0-100.0); Mean Platelet Volume 10.1 fL (9.4-12.4); Platelet Count 105 K/mcL (140-400); Red Cell Distribution Width 15.1 % (11.5-14.5)
[2022-05-24 04:28] LABS: Hemoglobin 10.8 g/dL (11.5-15.4); White Blood Count 13.3 K/mcL (4.3-11.1)
[2022-05-24] MEDS: Amiodarone Premix 360 MG/200 ML BAG IVC SCH ×4 (04:31→14:41)
[2022-05-24] MEDS: FentaNYL (PF) 1,000 MCG/100 ML IV.SOLN IVC SCH ×2 (04:40→17:44)
[2022-05-24 04:50] LABS: Calcium 8.7 mg/dL (8.6-10.3); Chol/HDL Ratio 3.3 (0-4.9); Magnesium 2.3 mg/dL (1.6-2.6); Phosphorous 2.2 mg/dL (2.7-4.5); Potassium 3.9 mEq/L (3.5-5.1)
[2022-05-24 04:52] LABS: Troponin I 0.09 ng/mL (< 0.04)
[2022-05-24] MEDS: Norepinephrine 4 MG/254 ML IV.SOLN IVC SCH (05:00)
[2022-05-24] MEDS ORDERED: Potassium Phosphate 44 MEQ in 0.9 % Sodium Chloride 250 ML IVPB PRN (05:19)
[2022-05-24] MEDS: Heparin 25,000UNIT/250ML 1/2NS 25,000 UNIT/250 ML IV.SOLN IVC SCH ×2 (06:03→19:49)
[2022-05-24] MEDS: Dexmedetomidine HCl 400 MCG/100 ML MLS IVC SCH (06:04)
[2022-05-24] MEDS: Phenylephrine 20 MG in 0.9 % Sodium Chloride 250 ML IVC SCH ×2 (07:23→14:41)
[2022-05-24] MEDS: Chlorhexidine Rinse 15 ML MOUTHWASH MM SCH ×2 (07:29→20:43)
[2022-05-24] MEDS: Pantoprazole 40 MG VIAL IVP SCH (07:29)
[2022-05-24 20:20] LABS: Calcium 8.2 mg/dL (8.6-10.3); Phosphorous 4.9 mg/dL (2.7-4.5); Potassium 4.6 mEq/L (3.5-5.1)
[2022-05-24] MEDS ORDERED: Furosemide 20 MG/2 ML VIAL IVP ONE (21:26)
[2022-05-25] MEDS ORDERED: *HR* Metoprolol 5 MG/5 ML VIAL IVP PRN (01:26)
[2022-05-25] MEDS: FentaNYL (PF) 1,000 MCG/100 ML IV.SOLN IVC SCH (02:48)
[2022-05-25] MEDS: Ipratropium/Albuterol Neb 3 ML IH SCH ×4 (03:21→21:41)
[2022-05-25] MEDS: Artificial Tears SOLN 15 ML BOTTLE BOTH EYES SCH ×6 (03:32→23:22)
[2022-05-25] MEDS: Norepinephrine 4 MG/254 ML IV.SOLN IVC SCH ×2 (03:32→23:22)
[2022-05-25 03:49] LABS: VBG Ionized Calcium 1.11 mmol/L (1.15-1.35)
[2022-05-25 03:55] LABS: Basophils % 0.1 %; Mean Corpuscular Volume 104.8 fL (83.0-100.0); Monocytes % 2.5 %; Red Cell Distribution Width 15.4 % (11.5-14.5)
[2022-05-25 03:57] LABS: Hematocrit 32.5 % (35.3-44.9); Hemoglobin 10.8 g/dL (11.5-15.4); Immature Granulocytes % 0.6 % (0-4); Immature Platelets 3.5 % (1.1-6.1); Lymphocytes # 0.5 K/mcL (0.6-4.6); Lymphocytes % 4.5 %; Mean Corpuscular HGB Conc 33.2 g/dL (31.6-35.5); Mean Corpuscular Hemoglobin 34.8 pg (28.0-33.3); Mean Platelet Volume 10.6 fL (9.4-12.4); Monocytes # 0.3 K/mcL (0.0-1.3); Neutrophils # 10.6 K/mcL (1.6-8.9); Nucleated Red Blood Cells 0.2 /100 WBC (0); Platelet Count 90 K/mcL (140-400); Segmented Neutrophils % 92.3 %; White Blood Count 11.5 K/mcL (4.3-11.1)
[2022-05-25 04:03] LABS: Calcium 7.8 mg/dL (8.6-10.3); Potassium 3.9 mEq/L (3.5-5.1)
[2022-05-25] MEDS: Insulin LISPRO 300 UNITS/3 ML VIAL SUBQ SCH ×4 (04:19→23:22)
[2022-05-25 04:20] LABS: ABG Base Excess 1 mEq/L (-2 to 3); ABG HCO3 26 mEq/L (21-27); ABG Oxygen Saturation 98 % (95-98); ABG PCO2 42 mmHg (35-45); ABG PO2 100 mmHg (85-104); ABG TCO2 27 mEq/L (20-26); Blood Gas Modality AF; Blood Gas VT 400 cc
[2022-05-25] MEDS ORDERED: Potassium Chloride Elixir 20 MEQ/15 ML UDC GTUBE ONE (04:38)
[2022-05-25 04:54] LABS: Magnesium 2.1 mg/dL (1.6-2.6); Phosphorous 3.3 mg/dL (2.7-4.5)
[2022-05-25] MEDS: Dexmedetomidine HCl 400 MCG/100 ML MLS IVC SCH ×2 (04:59→18:00)
[2022-05-25] MEDS: levoFLOXacin 750 MG/150 ML 750 MG/150 ML BAG IVPB SCH (08:42)
[2022-05-25] MEDS: MethylPREDNISolone 40 MG/ML VIAL IVP SCH ×3 (08:43→23:21)
[2022-05-25] MEDS: Chlorhexidine Rinse 15 ML MOUTHWASH MM SCH ×2 (08:43→20:57)
[2022-05-25] MEDS: Pantoprazole 40 MG VIAL IVP SCH (08:43)
[2022-05-25 14:21] LABS: ABG Base Excess -1 mEq/L (-2 to 3); ABG HCO3 30 mEq/L (21-27); ABG Oxygen Saturation 97 % (95-98); ABG PCO2 84 mmHg (35-45); ABG PH 7.16 pH Units (7.32-7.45); ABG PO2 121 mmHg (85-104); ABG TCO2 32 mEq/L (20-26)
[2022-05-25 16:06] LABS: ABG Base Excess 1 mEq/L (-2 to 3); ABG HCO3 30 mEq/L (21-27); ABG Oxygen Saturation 95 % (95-98); ABG PCO2 70 mmHg (35-45); ABG PH 7.24 pH Units (7.32-7.45); ABG PO2 91 mmHg (85-104); ABG TCO2 32 mEq/L (20-26); Blood Gas VT 450 cc
[2022-05-25] MEDS: Heparin 25,000UNIT/250ML 1/2NS 25,000 UNIT/250 ML IV.SOLN IVC SCH (18:00)
[2022-05-25] MEDS: Phenylephrine 20 MG in 0.9 % Sodium Chloride 250 ML IVC SCH (18:05)
[2022-05-25] MEDS: Budesonide/Glycopyr/Formoterol [Breztri Aerosphere] IH SCH (21:21)
[2022-05-26] MEDS: Artificial Tears SOLN 15 ML BOTTLE BOTH EYES SCH ×6 (03:12→23:26)
[2022-05-26] MEDS: Ipratropium/Albuterol Neb 3 ML IH SCH ×6 (03:32→22:46)
[2022-05-26 04:46] LABS: Hematocrit 28.2 % (35.3-44.9); Red Cell Distribution Width 15.4 % (11.5-14.5)
[2022-05-26 04:47] LABS: Hemoglobin 8.9 g/dL (11.5-15.4); Immature Platelets 3.7 % (1.1-6.1); Mean Corpuscular HGB Conc 31.6 g/dL (31.6-35.5); Mean Corpuscular Hemoglobin 33.8 pg (28.0-33.3); Mean Corpuscular Volume 107.2 fL (83.0-100.0); Mean Platelet Volume 10.5 fL (9.4-12.4); Red Blood Count 2.63 M/mcL (3.82-4.97); White Blood Count 4.9 K/mcL (4.3-11.1)
[2022-05-26 04:50] LABS: VBG Ionized Calcium 1.16 mmol/L (1.15-1.35)
[2022-05-26 05:02] LABS: Calcium 8.5 mg/dL (8.6-10.3); Magnesium 2.3 mg/dL (1.6-2.6); Phosphorous 3.8 mg/dL (2.7-4.5)
[2022-05-26] MEDS: Insulin LISPRO 300 UNITS/3 ML VIAL SUBQ SCH ×4 (05:05→23:26)
[2022-05-26 05:15] LABS: ABG Base Excess 1 mEq/L (-2 to 3); ABG HCO3 25 mEq/L (21-27); ABG Oxygen Saturation 82 % (95-98); ABG PCO2 38 mmHg (35-45); ABG PH 7.44 pH Units (7.32-7.45); ABG PO2 45 mmHg (85-104); ABG TCO2 27 mEq/L (20-26); Blood Gas Modality AVAPS; Blood Gas VT 450 cc
[2022-05-26] MEDS: MethylPREDNISolone 40 MG/ML VIAL IVP SCH ×3 (07:47→23:25)
[2022-05-26] MEDS: Chlorhexidine Rinse 15 ML MOUTHWASH MM SCH ×2 (07:48→19:40)
[2022-05-26] MEDS: Pantoprazole 40 MG VIAL IVP SCH (07:48)
[2022-05-26] MEDS ORDERED: Albuterol 2.5 MG/3 ML NEBULIZER IH PRN (07:51)
[2022-05-26] MEDS: Budesonide/Glycopyr/Formoterol [Breztri Aerosphere] IH SCH ×2 (08:17→19:42)
[2022-05-26] MEDS: Dexmedetomidine HCl 400 MCG/100 ML MLS IVC SCH (09:16)
[2022-05-26 12:35] LABS: Hematocrit 28.4 % (35.3-44.9); Hemoglobin 9.1 g/dL (11.5-15.4)
[2022-05-26] MEDS: Phenylephrine 20 MG in 0.9 % Sodium Chloride 250 ML IVC SCH (14:11)
[2022-05-26] MEDS: *HR* Rivaroxaban 10 MG TABLET PO SCH (15:36)
[2022-05-26] MEDS: *HR* Amiodarone 200 MG TABLET PO SCH ×2 (15:36→19:40)
[2022-05-27] MEDS: Dexmedetomidine HCl 400 MCG/100 ML MLS IVC SCH ×2 (00:15→16:49)
[2022-05-27] MEDS: Artificial Tears SOLN 15 ML BOTTLE BOTH EYES SCH ×6 (03:23→23:54)
[2022-05-27] MEDS: Ipratropium/Albuterol Neb 3 ML IH SCH ×6 (03:53→23:26)
[2022-05-27 03:54] LABS: VBG Ionized Calcium 1.21 mmol/L (1.15-1.35)
[2022-05-27 03:57] LABS: Hemoglobin 8.6 g/dL (11.5-15.4); Red Cell Distribution Width 15.1 % (11.5-14.5)
[2022-05-27 03:59] LABS: Hematocrit 26.8 % (35.3-44.9); Immature Granulocytes % 1.3 % (0-4); Immature Platelets 5.8 % (1.1-6.1); Lymphocytes # 0.5 K/mcL (0.6-4.6); Lymphocytes % 8.7 %; Mean Corpuscular HGB Conc 32.1 g/dL (31.6-35.5); Mean Corpuscular Hemoglobin 34.4 pg (28.0-33.3); Mean Corpuscular Volume 107.2 fL (83.0-100.0); Mean Platelet Volume 10.7 fL (9.4-12.4); Monocytes # 0.2 K/mcL (0.0-1.3); Monocytes % 3.9 %; Neutrophils # 4.7 K/mcL (1.6-8.9); Nucleated Red Blood Cells 0.4 /100 WBC (0); Segmented Neutrophils % 86.1 %; White Blood Count 5.4 K/mcL (4.3-11.1)
[2022-05-27 04:02] LABS: Platelet Count 58 K/mcL (140-400)
[2022-05-27 04:07] LABS: ABG Base Excess 3 mEq/L (-2 to 3); ABG HCO3 29 mEq/L (21-27); ABG Oxygen Saturation 100 % (95-98); ABG PCO2 52 mmHg (35-45); ABG PH 7.35 pH Units (7.32-7.45); ABG PO2 192 mmHg (85-104); ABG TCO2 30 mEq/L (20-26); Blood Gas Modality AVAPS; Blood Gas VT 450 cc
[2022-05-27 04:12] LABS: Calcium 8.4 mg/dL (8.6-10.3); Magnesium 2.4 mg/dL (1.6-2.6); Phosphorous 4.5 mg/dL (2.7-4.5); Potassium 5.5 mEq/L (3.5-5.1)
[2022-05-27] MEDS: Insulin LISPRO 300 UNITS/3 ML VIAL SUBQ SCH ×3 (07:04→18:18)
[2022-05-27] MEDS: MethylPREDNISolone 40 MG/ML VIAL IVP SCH ×2 (08:10→14:57)
[2022-05-27] MEDS: levoFLOXacin 750 MG/150 ML 750 MG/150 ML BAG IVPB SCH (08:10)
[2022-05-27] MEDS: Pantoprazole 40 MG VIAL IVP SCH (08:10)
[2022-05-27] MEDS: *HR* Amiodarone 200 MG TABLET PO SCH (08:10)
[2022-05-27] MEDS: Chlorhexidine Rinse 15 ML MOUTHWASH MM SCH ×2 (08:10→19:18)
[2022-05-27] MEDS: Budesonide/Glycopyr/Formoterol [Breztri Aerosphere] IH SCH ×2 (08:18→20:26)
[2022-05-27] MEDS: FentaNYL (PF) 1,000 MCG/100 ML IV.SOLN IVC SCH (08:32)
[2022-05-27 12:23] LABS: Albumin 3.2 g/dL (3.5-5.7); Albumin/Globulin Ratio 1.6 (1.1-2.2); Bilirubin,Direct 0.4 mg/dL (0.0-0.2); Bilirubin,Indirect 0.4 mg/dL (0.0-1.0); Bilirubin,Total 0.8 mg/dL (0.3-1.0); Total Protein 5.2 g/dL (6.4-8.9)
[2022-05-27] MEDS ORDERED: Acetaminophen 325 MG TABLET PO PRN (14:33)
[2022-05-27] MEDS: *HR* OxyCODONE Immed Rel 5 MG TABLET PO PRN ×2 (14:54→20:49)
[2022-05-27] MEDS: *HR* Rivaroxaban 10 MG TABLET PO SCH (16:49)
[2022-05-27] MEDS ORDERED: Melatonin 3 MG TABLET PO PRN (21:52)
[2022-05-27] MEDS ORDERED: traZODone 50 MG TABLET PO ONE (23:16)
[2022-05-28] MEDS: MethylPREDNISolone 40 MG/ML VIAL IVP SCH ×4 (00:22→19:56)
[2022-05-28] MEDS: Insulin LISPRO 300 UNITS/3 ML VIAL SUBQ SCH ×4 (01:05→17:12)
[2022-05-28] MEDS: Artificial Tears SOLN 15 ML BOTTLE BOTH EYES SCH ×2 (03:26→07:15)
[2022-05-28] MEDS: *HR* OxyCODONE Immed Rel 5 MG TABLET PO PRN (03:26)
[2022-05-28 03:37] LABS: VBG Ionized Calcium 1.22 mmol/L (1.15-1.35)
[2022-05-28 03:48] LABS: Lymphocytes % 5.2 %
[2022-05-28 03:51] LABS: Hemoglobin 8.7 g/dL (11.5-15.4); Immature Platelets 4.6 % (1.1-6.1); Lymphocytes # 0.3 K/mcL (0.6-4.6); Mean Corpuscular HGB Conc 32.2 g/dL (31.6-35.5); Mean Corpuscular Hemoglobin 33.7 pg (28.0-33.3); Mean Corpuscular Volume 104.7 fL (83.0-100.0); Mean Platelet Volume 10.6 fL (9.4-12.4); Monocytes # 0.3 K/mcL (0.0-1.3); Monocytes % 5.4 %; Neutrophils # 5.2 K/mcL (1.6-8.9); Red Blood Count 2.58 M/mcL (3.82-4.97); Red Cell Distribution Width 14.7 % (11.5-14.5); Segmented Neutrophils % 87.4 %
[2022-05-28] MEDS: Ipratropium/Albuterol Neb 3 ML IH SCH ×7 (03:56→23:02)
[2022-05-28 04:04] LABS: Albumin 2.9 g/dL (3.5-5.7); Albumin/Globulin Ratio 1.3 (1.1-2.2); Bilirubin,Direct 0.7 mg/dL (0.0-0.2); Bilirubin,Indirect 0.6 mg/dL (0.0-1.0); Bilirubin,Total 1.3 mg/dL (0.3-1.0); Calcium 8.5 mg/dL (8.6-10.3); Globulin 2.2 g/dL (2.4-3.5); Magnesium 2.4 mg/dL (1.6-2.6); Phosphorous 5.2 mg/dL (2.7-4.5); Potassium 5.8 mEq/L (3.5-5.1); Total Protein 5.1 g/dL (6.4-8.9)
[2022-05-28 04:11] LABS: Platelet Count 60 K/mcL (140-400)
[2022-05-28] MEDS: Chlorhexidine Rinse 15 ML MOUTHWASH MM SCH ×2 (07:27→19:43)
[2022-05-28] MEDS: Pantoprazole 40 MG VIAL IVP SCH (07:27)
[2022-05-28] MEDS: Budesonide/Glycopyr/Formoterol [Breztri Aerosphere] IH SCH ×2 (07:41→20:00)
[2022-05-28] MEDS ORDERED: Insulin Human Regular 10 UNIT in 0.9 % Sodium Chloride 10 ML IV ONE (07:56)
[2022-05-28] MEDS ORDERED: *HR* Dextrose 50 % in Water (Syg) 50 ML SYRINGE IVP ONE (07:56)
[2022-05-28] MEDS ORDERED: Calcium Gluconate 1gm/50mL 1 GM/50 ML BAG IVPB ONE (08:00)
[2022-05-28] MEDS ORDERED: SODIUM ZIRCONIUM CYCLOSILICATE 5 GM POWD.PACK PO SCH (09:00)
[2022-05-28] MEDS: 0.9 % Sodium Chloride 1,000 ML IVC SCH ×2 (10:08→19:56)
[2022-05-28] MEDS ORDERED: DilTIAZem CD (24hr) 120 MG CAP.ER.24H PO SCH (13:30)
[2022-05-28 14:08] LABS: VBG Ionized Calcium 1.26 mmol/L (1.15-1.35)
[2022-05-28 14:45] LABS: Calcium 8.9 mg/dL (8.6-10.3); Magnesium 2.3 mg/dL (1.6-2.6); Potassium 5.1 mEq/L (3.5-5.1)
[2022-05-28] MEDS ORDERED: *HR* Metoprolol 5 MG/5 ML VIAL IVP ONE (15:34)
[2022-05-28] MEDS: Dexmedetomidine HCl 400 MCG/100 ML MLS IVC SCH (15:37)
[2022-05-28] MEDS ORDERED: *HR* Metoprolol 5 MG/5 ML VIAL IVP PRN ×2 (17:08→17:12)
[2022-05-28] MEDS: *HR* Rivaroxaban 10 MG TABLET PO SCH (17:08)
[2022-05-28 20:03] VITALS: O2SAT 97
[2022-05-28 23:13] VITALS: BP 130/56; PULSE 109
[2022-05-28 23:49] VITALS: TEMP 98.5
== END 2022-05-29 00:20 | disposition short-term general hospital (02) | DRG 208 ==
LOC: ICNU
PROVIDERS: ADMIT Internal Medicine; ATTEND Internal Medicine